=== PATIENT | female | born 1950 | race Caucasian/White ===

== ENCOUNTER → 2019-11-10 11:46 | Outpatient (BNVA) | payer MEDICARE, OTHER, SELFPAY | PROVIDERS: Family Provider Family Medicine; PCP Family Medicine; Visit Provider Internal Medicine Cardiovascular Disease | DX: I25.10 Atherosclerotic heart disease of native coronary artery without angina pectoris (principal); R07.9 Chest pain, unspecified; E78.5 Hyperlipidemia, unspecified; E78.2 Mixed hyperlipidemia; I10 Essential (primary) hypertension; F17.200 Nicotine dependence, unspecified, uncomplicated | CPT/HCPCS: 80053; 80061 ==

== ENCOUNTER 2020-03-13 08:39 | Outpatient (CLI) | payer MEDICARE, OTHER, SELFPAY ==
--- NOTE | 2020-03-13 09:34 | PFTS_ITS ---
Date of Study:03/13/20 Date of Dictation: MECHANICS: Forced vital capacity (FVC) is normal. Forced expiratory volume in one second (FEV1) is normal. FEV1/FVC is normal. FLOW VOLUME LOOP: Normal. LUNG VOLUMES: Not measured DIFFUSING CAPACITY FOR CARBON MONOXIDE: Not measured INTERPRETATION: The spirometry is normal. MTDD
== END 2020-03-13 08:40 | disposition home or self-care (01) ==
LOC: RT 08:45
PROVIDERS: PCP Family Medicine; Visit Provider Internal Medicine Cardiovascular Disease
DX: J44.9 Chronic obstructive pulmonary disease, unspecified (principal)
CPT/HCPCS: 94060; J7611

== ENCOUNTER 2020-04-19 10:22 | Outpatient (CLI) | payer MEDICARE, OTHER, SELFPAY ==
[2020-04-19 11:11] LABS: Basophils # 0.1 10^3/uL (0.0-0.1); Basophils % 0.6 %; Eosinophils # 0.2 10^3/uL (0.0-0.8); Eosinophils % 2.7 %; Hemoglobin 13.1 g/dL (11.5-15.3); Lymphocytes # 2.2 10^3/uL (0.8-4.8); Mean Corpuscular HGB Conc 31.2 g/dL (30.0-36.0); Mean Corpuscular Hemoglobin 28.7 pg (28.0-34.0); Mean Corpuscular Volume 92.1 fL (81-99); Mean Platelet Volume 9.4 fL (7.4-10.4); Monocytes # 0.8 10^3/uL (0.2-0.9); Monocytes % 9.6 %; Neutrophils # 4.84 10^3/uL (1.8-7.7); Neutrophils % 59.7 %; Nucleated Red Blood Cells % 0 %; Platelet Count 322 10^3/cmm (130-400); Red Blood Count 4.56 10^6/uL (4.1-5.3); Red Cell Distribution Width 14.6 % (12.1-15.1); White Blood Count 8.1 10^3/uL (4.0-10.0)
[2020-04-19 11:27] LABS: INR 0.97 (0.83-1.21); Prothrombin Time (Patient) 13.2 Seconds (12.0-15.1)
[2020-04-19 11:40] LABS: Anion Gap 13.7 (5-19); Blood Urea Nitrogen 12 mg/dL (8-23); Calcium 9.1 mg/dL (8.5-10.5); Carbon Dioxide 28 mmol/L (22-29); Chloride 101 mmol/L (98-107); Glomerular Filtration Rate 98.8 mL/min (90-130); Glucose 101 mg/dL (65-115); Osmolality Calculated 286 mOsm/kg (285-295); Potassium 4.7 mmol/L (3.5-5.1); Sodium 138 mmol/L (136-145)
== END 2020-04-19 10:23 | disposition home or self-care (01) ==
PROVIDERS: PCP Family Medicine; Visit Provider Internal Medicine Cardiovascular Disease
DX: I25.10 Atherosclerotic heart disease of native coronary artery without angina pectoris (principal); U07.1 COVID-19
CPT/HCPCS: 36415; 80048; 85025; 87635

== ENCOUNTER 2020-04-25 07:17 | Day surgery (SDC) | payer MEDICARE, OTHER, SELFPAY ==
[2020-04-24 13:32] VITALS: BMI 26.2
[2020-04-25] VITALS (19 sets, daily range): BP systolic 95–148; BP diastolic 52–80; PULSE 58–82; RESP 13–23; TEMP 36.6; O2SAT 90–98
--- NOTE | 2020-04-25 | CTR_ITS ---
[facility] Final Radiology Report Call: [phone] Name: RISSA LEMON Age: 70Years F Date: 04/25/2020 SSN: -- : 1950 Study: CT CHEST WO Requesting Physician: Jenae Morris Images: [id number] Provided Clinical History: SOB Procedure Accession CTDI Vol (mGy) DLP (mGy-cm) CT CHEST WO [id number] 701.7 PROCEDURE INFORMATION: Exam: CT Chest Without Contrast Exam date and time: 04/25/2020 1:35 PM Age: 70 years old Clinical indication: Shortness of breath; Prior surgery; Surgery date: 6+ months; Surgery type: Breast; Additional info: SOB TECHNIQUE: Imaging protocol: Computed tomography of the chest without contrast. Radiation optimization: All CT scans at this facility use at least one of these dose optimization techniques: automated exposure control; mA and/or kV adjustment per patient size (includes targeted exams where dose is matched to clinical indication); or iterative reconstruction. COMPARISON: CR Chest 1 view [id number] 03/08/2018 1:00 AM RADIATION DOSE METRICS: Total DLP (mGy-cm): 701.7 FINDINGS: Lungs: Severe emphysematous change, interstitial prominence, and mild airspace disease. Poorly defined 4 mm nodular lesion of ground-glass attenuation in the right upper lobe (series 2: Image 25). No routine follow-up is indicated. (Reference: [place]). Punctate left upper lobe granuloma. Thyroid: Asymmetric enlargement of the left thyroid lobe with a poorly characterized 2.1 cm nodular hypodense lesion. Pleural space: No significant pleural effusion. Heart: Coronary artery calcification. Aorta: Calcification and ectasia of the thoracic aorta. Lymph nodes: Mediastinal lymph nodes including a 1.8 by 1.8 by 1.2 cm precarinal lymph node. Note evaluation of the edi is somewhat limited in the absence of intravenous contrast. Upper abdomen: Status post cholecystectomy. Contrast in the incompletely visualized upper collecting systems. Mildly dilated fluid-filled stomach. Bones/joints: Osteopenia and degenerative change. Discogenic sclerosis, disc bulging, and pedicle screws in the incompletely visualized lumbar spine. IMPRESSION: 1. Severe emphysematous change, interstitial prominence, and mild airspace disease. 2. Additional findings as described above. Thank you for allowing us to participate in the care of your patient. Dictated and Authenticated by: Solo Sheth MD 04/25/2020 2:13 PM Central Time ([place] & [place]) ROSE
[2020-04-25] MEDS: diphenhydrAMINE 50 mg Capsule PO (07:29)
--- NOTE | 2020-04-25 08:30 | XACV_ITS ---
Ht: 170 cm Wt: 76 kg BSA: 1.91 m2 Gender: Female : 1950 Any Known Allergies: Other Exam Priority: Routine Procedure(s): Procedure Description: Diagnostic procedure Procedure Description: Left Heart Catheterization Procedure Description: Left ventriculography Procedure Description: Coronary Angiography Procedure Description: Pressure Wire Diagnostic Cath Status: Elective Diagnostic Findings * LM has 0% stenosis. * LAD has 0% stenosis. * CX has 0% stenosis. * Mid Right Coronary Artery to mRCA: Moderate 60% stenosis, NIKKI: 3 flow. * Coronary angiography shows right dominance. Conclusions 1. There is moderate coronary artery disease with one vessel disease. 2. Hyperdynamic left ventricular systolic function. Ejection fraction of 70%. 3. FFR: After equalizing the distal and proximal pressure of FFR wire proximal to the lesion, mid RCA lesion was crossed with FFR wire. IV adenosine at rate of 140 mcg/min was started. Patient did not compliant of any symptoms, at then end of two minutes FFR was recorded as 0.91, which is not significant . 4. Indication for angiogram: Unexplained shortness of breath. Recommendations * Continue current medical management and risk factor modification. Diagnostic RX Recommendation: medical therapy and/or counseling Ventriculography Ejection Fraction: 70.0 % Pressures Phase:Rest AO : 103 / 59 ( 76 ) @ 4:14:00 AM 133 / 59 ( 95 ) @ 4:35:00 AM 133 / 59 ( 94 ) @ 4:36:00 AM LV : 139 / 2 / @ 4:34:00 AM 139 / 12 / @ 4:35:00 AM 139 / 10 / @ 4:35:00 AM Valves Phase:DefaultPhase AV : 6.0 @ 9:46:40 AM AV Mean Gradient: 7.0 @ 9:46:40 AM Clinical Evaluation EBL: 5mL-10mL Procedural Details Procedure Consent Obtained. Pre-Procedure Time Out. Identified patient by full name and date of as verbalized by the patient/guarantor. Does the consent match the physician's order: Yes. Accurate & Complete Informed Consent: Yes. Inpatient/Outpatient History & Physical on Chart: Yes. If H&P is completed, is and addenduem needed: No; If yes, is the addendum complete: N/A. Visualize and Verify Site with Patient/Guarantor: N/A. Relevant Radiology Images available: N/A. Pre-op teaching completed and patient verbalized understanding. The risks, benefits, and alternatives of sedation and/or procedure were discussed by physician. The patient agrees to continue. Procedure started. [facility] Clinical Fraility Score: 3: Managing Well. Web Ui Software Engineer Indications: New Onset Angina. Chest Pain Symptom Assessment: Atypical Angina. Cardiovascular Instability: No. Correct patient, site and procedure confirmed by cath team. PERRLA. Strong, equal hand inspector integrated circuits bilaterally. Lungs clear x 5 lobes. IV Site on Arrival: 20 gauge in the left anticubital. IV Fluids: 0.9% NaCl at KVO. 0 mL infused prior to rangelands conservation laborer. Pre Procedural Pulses: bilateral dorsalis pedis was 3+. Pre Procedural Pulses: bilateral posterior tibial was 2+. Pre Procedural Pulses: bilateral radial was 3+. Oxygen started at 2liters/min via nasal canula. bilateral groins was prepped with chloroprep then draped in the usual sterile fashion. Baseline sample Acquired. HR: 63 BPM. Physician notified. Physician arrived. Equipment: 6F - Radial. Physician scrubbed in. Immediate Pre-Procedure Time Out. Correct Patient: Yes; Correct Procedure: Yes; Correct Site: Yes; Correct Patient Position: Yes; Correct Supplies: Yes; Dried Flammable Prep: Yes; Blood Products Available: N/A;. Lidocaine 1% infiltrated to the right radial. Arterial access obtained. Cardiac Cath Pack. ACIST Manifold Kit Model BT 2000. Heparinized Saline (2 units/mL), 1000 mL bag. A 5 chinese TIG catheter in over wire. Multiple views taken of left coronary artery. Catheter redirected to the RCA. Multiple views taken of right coronary artery. Catheter removed over the exchange wire. Inventory is CRD 6FR JR 4 GUIDE 100cm. 6 chinese JR 4 guide catheter was inserted over the wire. FFR guidewire was advanced through the guide catheter to lesion in the mid RCA. An FFR value of 0.91 was obtained for a lesion located at Mid RCA. Wire out. Guide catheter out. Fractional flow reserve measurements obtained. A 5 chinese Angled Pig catheter in over wire. EDP Sample taken: LV 139/2,25; HR: 68 BPM; SpO2: 96%. LV gram performed in JONES @ 10 mL/second for a total of 30 mL. EDP Sample taken: LV 139/12,30; HR: 71 BPM; SpO2: 96%. Pullback taken: LV 139/10,29; AO 133/59(95); Mean: 7mmHg, Peak to Peak: 6mmHg, SEP: 21sec/min; HR: 70 BPM; SpO2: 97%. Catheter removed over the exchange wire. Physician scrubbed out. A TR Band was successful obtaining hemostatsis at the Right Radial artery insertion site. TR band placed. Hemostasis obtained. Post Procedure: Pulses reassessed and unchanged. PERRLA. Strong, equal hand inspector integrated circuits bilaterally. No VTE prophylaxis required. Medication's Wasted: Lidocaine 1% = 18 mL. Medication's Wasted: Nitro = 49.8 mg. Medication's Wasted: Heparin = 1000 units. Medication's Wasted: Other = adenosine 68 mg. Total IV fluids: 50 mL. Contrast type used: Visipaque 320 mgI/mL, 500 mL bottle. Post-op diagnosis: non obstructive CAD, patent stent. Complications: none. Estimated blood loss: 5mL-10mL. Procedure completed. Patient transferred by wheelchair to 1st floor. Vital chart was stopped. Access Site Site: Right Radial artery Sheath Size: 6 Fr Hemostasis Method: TR Band Hemostasis Success: Successful Procedure Medications Start: 9:00 AM Stop: 9:00 AM Medication: Versed Amount: 1 mg Route: I.V. Start: 9:00 AM Stop: 9:00 AM Medication: Fentanyl Amount: 50 mcg Route: I.V. Start: 9:07 AM Stop: 9:07 AM Medication: Versed Amount: 1 mg Route: I.V. Start: 9:07 AM Stop: 9:07 AM Medication: Fentanyl Amount: 50 mcg Route: I.V. Start: 9:11 AM Stop: 9:11 AM Medication: Nitrogylcerin Amount: 200 mcg Route: I.A. Start: 9:14 AM Stop: 9:14 AM Medication: Heparin Amount: 5000 units Route: I.V. I, the attending physician, have reviewed and verified all procedure medications. Yes, all medications given per verbal order History/Risk Factors Hypertension: Yes Dyslipidemia: Yes Peripheral Arterial Disease (PAD): No Myocardial Infarction (NV): No Obesity: No Renal Disease: No Tobacco Use: Current/Recent(w/in 1 year) Prior Interventions PCI: No CABG: No Valve Surgery: No Report Signatures Finalized by Moshe Pinedo MD on 05/07/2020 06:13 PM
--- NOTE | 2020-04-25 09:42 | W.PM.OPSUD ---
Surgery/Procedure H&P Update DATE OF PROCEDURE: April 25, 2020 DATE H&P PERFORMED: 04/08/20 H&P UPDATE INFORMATION: I have reviewed H&P completed within last 30 days, I have examined patient prior to procedure and No changes to prior documentation PREOP DIAGNOSIS: Worsening of shortness of breath unexplained in a patient with prior stent despite of maximal medical management PLANNED PROCEDURE: Operation Date: 04/25/20 08:30 Proposed Procedures p Cardiac Catheterization LHC(Left) - Moshe Pinedo MD PATIENT REASSESSED PRIOR TO SEDATION, WITH NO CHANGE NOTED: Yes PHYSICAL EXAM: alert, oriented x 3, clear to auscultation bilaterally and regular rate & rhythm AIRWAY EVAL/ANESTHESIA PLAN: ASA II, Risks, benefits & alternatives of sedation and/or procedure discussed and Patient agrees to continue as planned
--- NOTE | 2020-04-25 10:05 | PC.NURSE ---
patient received from lab aid staff patient alert oriented and in stable condition no distress noted TR band in place no hematoma noted will follow protocol for TR band removal
--- NOTE | 2020-04-25 11:16 | PC.CHAP ---
Pastoral Care Encounter/Spiritual Assessment Type of Contact [] Declined associate art director visit [] Patient/Family/Request visit [] Outpatient visit [] Follow-up visit [] Physician referral [] Code/Alert [x] Routine visit [] Staff referral [] Actively dying [] Patient sleeping [] Family support [] [] Out of room [] Palliative care [] [x] Receiving care in room [] Pre-surgical visit [] Trauma [] Long length of stay [] ICU visit [] Other: Relational/Emotional Strength [x] Patient feels connected with others/family/visitors/staff [] Distress [] Loneliness/isolation [] Abandonment Spirituality of Patient [x] Person of Marylou [] Attends Caodaism of their Marylou [x] Believes in Prayer [] Reads Bible or Taoism materials [] There are Spiritual issues to be addressed Farm Operations Technical Director Interventions [x] Prayer [x] Active listening [x] Non-anxious presence [x] Spiritual/emotional support [] Crisis/trauma care [x] Spiritual counseling [] Bereavement support [] Provided bereavement packet [] Provided Bible/devotional materials [] Provided toy/stuffed animal, coloring book to patient or family member [] Provided Communion [] Anointing/Thompson [] Salvation [x] Completed spiritual assessment [] Other: Impact on Illness or Injury [] Angry [] Fearful [] Anxious [] Often cries [] Exhaustion [] Unable to work [] Unable to attend cheondoism [] Unable to walk/stand [] Unable to read [] Unable to drive [] Unable to eat/drink [] Unable to sleep [] Unable to be with family [] Patient intubated [] Other: Summary Tests were good she going home, has a good attitude Time spent with patient 10 mins
--- NOTE | 2020-04-25 11:36 | PC.NURSE ---
TR band removal paused at this time due to min bleeding from sight; 6 ML of air previously removed every 10 minutes. Replaced 6ml of air at this time will wait approximately 30 min and begin protocol again patient educated on process and what to expect and s/s of adverse events patient verbalized understanding.
--- NOTE | 2020-04-25 14:18 | PC.NURSE ---
4860 patient TR band removed per protocol no hematoma or bleeding noted patient tolerated well
--- NOTE | 2020-04-25 14:19 | PC.NURSE ---
1410 patient discharged home self care discharge instructions as well as post angio home care instructions provided and explained to patient. patient verbalized understanding of all instructions given. IV discontinued; cath intact min bleeding noted dressing applied patient tolerated well. patient assisted to wheel chair and accompanied to POV with all belongings and discharge instructions in hand. patient alert oriented and in stable condition POV driven by spouse.
== END 2020-04-25 14:10 | disposition home or self-care (01) ==
LOC: CCL 07:17 → CSU 07:22
PROVIDERS: PCP Family Medicine; Visit Provider Internal Medicine Cardiovascular Disease
DX: I25.10 Atherosclerotic heart disease of native coronary artery without angina pectoris (principal); I10 Essential (primary) hypertension; I69.892 Facial weakness following other cerebrovascular disease; F17.210 Nicotine dependence, cigarettes, uncomplicated; M81.0 Age-related osteoporosis without current pathological fracture; M19.90 Unspecified osteoarthritis, unspecified site; E78.2 Mixed hyperlipidemia; Z79.82 Long term (current) use of aspirin
CPT/HCPCS: 12345; 36415; 71250; 93452; 93571; C1769; C1887; C1894; J0153; J1644; J2250; J3010; J3490; J7030; Q0163; Q9967

== ENCOUNTER → 2020-05-02 11:17 | Outpatient (BNVA) | payer MEDICARE, OTHER, SELFPAY | PROVIDERS: PCP Family Medicine; Visit Provider Nurse Practitioner Family | DX: I25.10 Atherosclerotic heart disease of native coronary artery without angina pectoris (principal) | CPT/HCPCS: 80048 ==

== ENCOUNTER → 2020-05-27 09:48 | Outpatient (BNVA) | payer MEDICARE, OTHER, SELFPAY | PROVIDERS: PCP Family Medicine; Visit Provider Internal Medicine Cardiovascular Disease | DX: E78.5 Hyperlipidemia, unspecified (principal); I25.10 Atherosclerotic heart disease of native coronary artery without angina pectoris; R07.9 Chest pain, unspecified; I10 Essential (primary) hypertension; E78.2 Mixed hyperlipidemia; F17.200 Nicotine dependence, unspecified, uncomplicated; R59.0 Localized enlarged lymph nodes; E07.89 Other specified disorders of thyroid; R91.1 Solitary pulmonary nodule | CPT/HCPCS: 84439; 84443; 84481 ==

== ENCOUNTER 2020-05-29 16:02 | Outpatient (CLI) | payer MEDICARE, OTHER, SELFPAY ==
[2020-05-29 17:12] LABS: Free T4 Free Thyroxine 0.69 ng/dL (0.82-1.77); Thyroid Stimulating Hormone 3.22 uIU/mL (0.27-4.20)
== END 2020-05-29 16:03 | disposition home or self-care (01) ==
PROVIDERS: PCP Family Medicine; Visit Provider Internal Medicine
DX: E03.9 Hypothyroidism, unspecified (principal); E04.1 Nontoxic single thyroid nodule; E23.7 Disorder of pituitary gland, unspecified; R59.0 Localized enlarged lymph nodes; R94.6 Abnormal results of thyroid function studies
CPT/HCPCS: 36415; 84439; 84443; 99204

== ENCOUNTER 2020-06-05 13:41 | Outpatient (CLI) | payer MEDICARE, OTHER, SELFPAY ==
--- NOTE | 2020-06-05 14:15 | US_ITS ---
WS: [id number] THYROID ULTRASOUND REASON FOR EXAM: hypodense lesion on left thyroid gland TECHNIQUE: Grayscale and Doppler ultrasound examination of the thyroid gland. FINDINGS: RIGHT: Right thyroid gland measures 3.5 cm x 1.0 cm x 1.2 cm. Right thyroid volume equals 2.3 ccm3. Multiple thyroid nodules of varying character and size. LEFT: Left thyroid gland measures 6.0 cm x 2.3 cm x 2.6 cm. Left thyroid volume equals 18.3 ccm3. Measurements and volume of the left lobe of the thyroid include a large solid mass. Multiple other v arying sized and varying character nodules. Normal thyroid isthmus. There are multiple varying sized and varying character nodules in the thyroid gland. Most of these ar e benign in appearance however, in the left lobe of the thyroid there is a large solid mass with sign ificantly increased blood flow compared to normal thyroid gland. US/US thyroid [id number] IMPRESSION: Multinodular goiter. Large solid mass in the left lobe of the thyroid which should be biopsied as cl inically warranted.
== END 2020-06-05 13:42 | disposition home or self-care (01) ==
LOC: RAD 13:44
PROVIDERS: PCP Family Medicine; Visit Provider Internal Medicine Pulmonary Disease
DX: E07.89 Other specified disorders of thyroid (principal); E04.2 Nontoxic multinodular goiter
CPT/HCPCS: 76536

== ENCOUNTER 2020-07-17 08:57 | Outpatient (CLI) | payer MEDICARE, OTHER, SELFPAY ==
--- NOTE | 2020-07-17 10:00 | US_ITS ---
WS: [id number] ULTRASOUND-GUIDED LEFT THYROID NODULE FNA HISTORY: left thyroid nodule needs FNA(2.2 cm) Procedure, risks, and complications were explained to the patient. Consent has been obtained. Fine-needle aspiration of the dominant nodule in the LEFT thyroid. This was negative on recent PET/CT . This nodule is very hypervascular. Patient has been consented with a risk of bleeding and hemorrhage and infection. The skin is cleansed with ChloraPrep and anesthetized with 1% buffered lidocaine. FNA performed with 25 gauge needles. polysomnography technologist is present to fix slides. 3 biopsies are performed. Patient had a moderate amount of bleeding surrounding the LEFT thyroid nodule. Only 3 biopsies were p erformed. Patient was observed for approximately one hour postprocedure. The bleeding did not progres s. The extent of the adjacent thyroid nodule decreased slightly at 45 minutes post procedure. US/US biopsy thyroid [id number] IMPRESSION: FNA of a LEFT thyroid nodule. Final pathology results pending. This was a complicated biopsy as there is a moderate amount of adjacent bleedin g despite using a small needle. Patient is observed for up to 1 hour postproced ure with no additional bleeding. Bleeding decreased slightly. Patient was not s ymptomatic. Patient has been instructed to return if there is any swelling or p roblems with breathing.
== END 2020-07-17 08:58 | disposition home or self-care (01) ==
PROVIDERS: PCP Family Medicine; Visit Provider Internal Medicine
DX: E04.1 Nontoxic single thyroid nodule (principal)
CPT/HCPCS: 10005; 88173; 88305

== ENCOUNTER 2020-07-24 14:49 | Outpatient (CLI) | payer MEDICARE, OTHER, SELFPAY ==
--- NOTE | 2020-07-24 15:11 | XR_ITS ---
WS: [id number] PROCEDURE: XR chest 2V insp/exp [id number] CLINICAL INFORMATION: rule out pneumonia COMPARISON: None. FINDINGS: Heart: Normal cardiac silhouette. Aortic calcification. Lungs: Chronic emphysematous changes. No acute pulmonary infiltrates. No focal pneumonia or pleural f luid. Bones: Postoperative changes lower cervical spine and lumbar spine. Osteopenia. XR/XR chest 2V insp/exp [id number] IMPRESSION: 1. Chronic emphysematous changes. 2. No acute pulmonary infiltrates.
== END 2020-07-24 14:50 | disposition home or self-care (01) ==
PROVIDERS: PCP Family Medicine; Visit Provider Internal Medicine Pulmonary Disease
DX: J18.9 Pneumonia, unspecified organism (principal)
CPT/HCPCS: 71046

== ENCOUNTER → 2020-07-30 09:22 | Outpatient (BNVA) | payer MEDICARE, OTHER, SELFPAY | PROVIDERS: PCP Family Medicine; Visit Provider Internal Medicine | DX: E03.8 Other specified hypothyroidism (principal); E04.1 Nontoxic single thyroid nodule; E23.7 Disorder of pituitary gland, unspecified; R59.0 Localized enlarged lymph nodes | CPT/HCPCS: 99214 ==

== ENCOUNTER 2020-07-31 08:12 | Outpatient (CLI) | payer MEDICARE, OTHER, SELFPAY ==
[2020-07-31 09:18] LABS: Prolactin 5.53 ng/mL (4.8-23.3); Thyroid Stimulating Hormone 3.55 uIU/mL (0.27-4.20)
[2020-07-31 11:33] LABS: Free T4 Free Thyroxine 0.88 ng/dL (0.82-1.77)
[2020-07-31 11:35] LABS: Cortisol Random 9.91 ug/dL (2.47-19.5)
[2020-08-07 05:28] LABS: Adrenocorticotropic Hormone 9 pg/mL (6-50)
== END 2020-07-31 08:13 | disposition home or self-care (01) ==
LOC: LAB 08:22
PROVIDERS: PCP Family Medicine; Visit Provider Internal Medicine
DX: E03.8 Other specified hypothyroidism (principal); E23.7 Disorder of pituitary gland, unspecified
CPT/HCPCS: 36415; 82024; 82533; 84146; 84439; 84443

== ENCOUNTER 2020-08-28 09:10 | Outpatient (CLI) | payer MEDICARE, OTHER, SELFPAY ==
--- NOTE | 2020-08-28 09:30 | CT_ITS ---
WS: [id number] CT NECK TECHNIQUE: Contrast-enhanced CT of the neck with coronal and sagittal reformatted images. CLINICAL INFORMATION: E04.1 THYROID NODULE COMPARISON: Ultrasound 07/17/2020 and 06/05/2020 CT chest April 25, 2020 DLP: 2515.[address] scans at [facility] use at least one of these dose optimization techniques: automat ed exposure control; mA and/or kV adjustment per patient size (includes targeted exams where dose is matched to clinical indication); or iterative reconstruction. FINDINGS: Again seen is the enhancing left thyroid nodule along the left inferior lobe extending into the upper mediastinum. This measures approximately 2.4 x 2.7 cm unchanged since the recent studies. A few smal l nodules in the right thyroid gland measuring 4 to 5 mm. Mild mass effect on the trachea at the thor acic inlet due to the large left thyroid nodule. No significant airway narrowing. Lung apices are wel l aerated. Aortic calcification. Mastoid air cells well aerated. Paranasal sinuses are well aerated. Normal parapharyngeal fat. Normal posterior nasopharynx. Parotid glands and submandibular glands are normal. Normal partially visualiz ed intracanal contents. No cervical lymphadenopathy. Prior postoperative changes anterior interbody c ervical fusion C4-C6. Anterior fusion hardware at C4-5. CT/CT neck w con* [id number] IMPRESSION: 1. No cervical lymphadenopathy. 2. Heterogeneous enhancing left thyroid nodule is unchanged in appearance exte nding into the upper mediastinum. Mild mass effect on the trachea at the thorac ic inlet. No critical airway stenosis. 3. A few subcentimeter right thyroid nodules. 4. Normal salivary glands. 5. Prior postoperative changes anterior cervical fusion C4-C6 with fusion hard garcía C4-5.
[2020-08-28 09:52] LABS: Blood Urea Nitrogen 8 mg/dL (8-23); Glomerular Filtration Rate 98.8 mL/min (90-130)
[2020-08-28] MEDS: iohexol 300 mg/mL 100 mL Btl IV (09:55)
== END 2020-08-28 09:11 | disposition home or self-care (01) ==
LOC: RADWPI 09:13
PROVIDERS: PCP Family Medicine; Visit Provider Otolaryngology
DX: M43.22 Fusion of spine, cervical region (principal); E04.2 Nontoxic multinodular goiter
CPT/HCPCS: 70491; 82565; 84520; 87635; Q9967

== ENCOUNTER 2020-09-04 06:19 | Day surgery (SDC) | payer MEDICARE, OTHER, SELFPAY ==
[2020-09-03 10:26] VITALS: BMI 26.9
[2020-09-04] VITALS (9 sets, daily range): BP systolic 109–141; BP diastolic 49–71; PULSE 68–88; RESP 16–20; TEMP 36.4–36.9; O2SAT 92–98
--- NOTE | 2020-09-04 06:45 | W.PM.OPSUD ---
Surgery/Procedure H&P Update DATE OF PROCEDURE: September 04, 2020 DATE H&P PERFORMED: 08/20/20 H&P UPDATE INFORMATION: I have reviewed H&P completed within last 30 days, I have examined patient prior to procedure and No changes to prior documentation PREOP DIAGNOSIS: Left thyroid mass PRIMARY INDICATION FOR PROCEDURE: Left thyroid mass PLANNED PROCEDURE: Operation Date: 09/04/20 08:00 Proposed Procedures p Hemithyroidectomy(Left) - Dion Medina MD
[2020-09-04] MEDS: sodium chloride 0.9% 1,000 ML 30 ML IV (07:07)
--- NOTE | 2020-09-04 07:17 | ECG_ITS ---
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 Measurements Intervals [place] Rate: 61 P: 63 WI: 150 QRS: 69 QRSD: 117 T: 41 QT: 429 QTc: 432 Interpretive Statements SINUS RHYTHM RIGHT BUNDLE BRANCH BLOCK [120+ ms QRS DURATION, UPRIGHT V1, 40+ ms S IN I/aVL/V4/V5/V6] No previous ECG available for comparison Electronically Signed On 09-04-2020 19:01:15 CORRECTIONAL COOK by Jenae Morris M.D. [email or web address].[x+[id number]
--- NOTE | 2020-09-04 07:17 | ANES.PREANE2 ---
Pre-Anesthetic Assessment Pre-Anesthetic Assessment: Height/Weight: Height 1.7 m Weight 78.018 kg Temp Pulse Resp BP Pulse Ox 98.4 F 68 18 141/71 96 09/04/20 06:47 09/04/20 06:47 09/04/20 06:47 09/04/20 06:47 09/04/20 06:47 Preop Diagnosis: Left thyroid mass Proposed Procedure: Operation Date: 09/04/20 08:00 Proposed Procedures p Hemithyroidectomy(Left) - Dion Medina MD Was Beta John taken within 24 hours: N/A Last intake: Intake Last Liquid Date 09/03/20 Last Liquid Time 22:00 Last Solid Date 09/03/20 Last Solid Time 22:00 Social: Social History: Tobacco and No alcohol Exam: Pre-Anes Outpt Exam: alert, oriented x 3, clear to auscultation bilaterally and regular rate & rhythm Airway: Submandibular: WNL Cervical ROM: WNL MP: 1 Dentition: False Pulmonary: Pulmonary: COPD CV/HEM: CV/HEM: CAD and HTN : : None reported Hepatic: Hepatic: None reported GI: GI: GERD Metabolic: Metabolic: Thyroid Comments: Thyroid mass Musc/skel: Musc/skel: None reported Neuropsych: Neuropsych: None reported Anesthetic Plan: ASA status: 3 Anesthesia: General Meds/Allergies Current Medications: Current Medications Generic Name Dose Route Start Last Admin Trade Name Freq PRN Reason Stop Dose Admin Sodium Chloride 1,000 mls @ 30 ml s/hr 09/04/20 06:45 09/04/20 07:07 Sodium Chloride 0.9% IV 09/05/20 06:44 30 mls/hr .Q24H NATALI Administration PFSH Anesthesia PFSH: Medical History Chronic obstructive pulmonary disease Coronary artery disease Hyperlipidemia Hypertension Smoker Surgical History Hx of hysterectomy Previous back surgery S/P cholecystectomy 2016 S/P left knee arthroscopy Family History Other CAD (coronary artery disease) Cancer Diabetes Social History Smoking and tobacco status: current every day smoker cigarettes Packs smoked per day: 0.5 Years cigarettes smoked: 59 [ Other cigarette details: [id number] ] Quit status (tobacco): has tried quititng Number of times tried to quit tobacco: 6 Second hand smoke exposure: Yes Smoking risk assessment/counseling performed?: Yes Alcohol intake: never Caregiver/support person: No Lives independently: Yes Household members: spouse Housing: House Marital status: Current occupational status: retired Pets and animals: Yes History of recent travel: No Current gender identity: Female Data Anesthesia Cardiac Studies: No Data to Display
--- NOTE | 2020-09-04 09:55 | PM.OP ---
Operative Report Date of procedure: September 04, 2020 Pre-op Diagnosis: Left thyroid mass Post-op diagnosis: same Post-op Findings: Enlarged thyroid with multilobular cystic masses. Procedure Done: Left thyroid lobectomy with isthmusectomy Specimens removed/disposition: Entire left thyroid and isthmus Surgeon: Dion Medina Anesthesia: General Estimated blood loss (mL): 30 Complications: No complications encountered Findings: 5 to 6 cm multilobulated left thyroid gland Condition: stable Disposition: PACU Brief History: 70-year-old female patient has had an enlarging left thyroid mass for several months. This had been evaluated previously with fine-needle aspiration which was inconclusive. It continued to enlarge and caused the feeling of difficulty breathing as well as swallowing. Therefore the patient is being brought to the operating room at this time to undergo left thyroid lobectomy and if necessary, complete thyroidectomy based on frozen section. Procedure: The procedure risks and complications were explained in detail to the patient in the office setting. These risks included bleeding infection numbness scarring swelling bruising need for additional treatment potential hoarseness due to vocal cord weakness or paralysis which could be temporary or permanent as well as calcium metabolism problems requiring calcium supplementation for life. She also could have problems with potential aspiration issues in the future and need for thyroid supplementation. More serious risk such as heart attack stroke or not surviving the surgery were also discussed. With these things understood informed consent was granted. A timeout was accomplished identifying the patient date of planned procedure allergies and with all in agreement the procedure continued. The patient was placed on the operating table in the supine position. Adequate general endotracheal tube anesthesia was obtained. She was given Ancef IV for prophylaxis. Signed the site was noted on the left neck. The patient was prepped and draped in usual fashion. A curvilinear incision was outlined with a marking pen 2 fingerbreadths above the sternal notch and this area was infiltrated with local using a total of 5 mL of 2% Xylocaine with 1-100,000 epinephrine. After several minutes the cut more the Bovie was used to cut through the skin and the planned incision outline. This was carried down to the subcutaneous fat and to the platysma muscle level. The platysma was cut and then dissection was carried down to the strap muscles medially. With the median raphae identified dissection was carried inferiorly and superiorly. Superiorly went up to the cricoid and the thyroid cartilage notch. Inferiorly was taken down to the region of the sternal notch. Then dissection was carried deep to the strap muscles bearing the isthmus of the thyroid and the left thyroid gland. Dissection was carried out in multiple directions including inferiorly to identify the inferior thyroid vein which was clamped cut and ligated with clips and dissection was carried out from the superiormost aspect identifying the superior thyroid artery vein and superior laryngeal nerve. All these larger vessels were clamped cut and either ligated with 2-0 silk suture or with medium or large clips. Then the isthmus was transected after dissecting free at the junction with the right thyroid lobe. Large clips were applied and then the gland was reflected laterally. Then all directions little by little the dissection was carried out identifying the parathyroid glands and preserving them with their vascular supply. The recurrent laryngeal nerve was identified and followed to its insertion as was the superior laryngeal nerve. The gland was removed in its entirety from the left side and forwarded to the pathologist for frozen section diagnosis. While this was pending the area was irrigated and observed for any bleeding. No bleeding was encountered. Pathology returned as cystic with not enough solid tissue to be able to determine exact diagnosis therefore this was deferred to permanent section. The wound defect was checked again for any bleeding. It was completely dry. It was therefore decided not to place a drain. The defect was closed in multiple layers using interrupted 4-0 chromic deep and subcutaneous and skin gerson to close the skin. The neck was cleansed. Neosporin ointment was applied over the gerson and a dressing was applied externally. The patient tolerated the procedure well had estimated blood loss of 30 mL and arrived in recovery in stable condition.
--- NOTE | 2020-09-04 10:09 | P.PCN_ITS ---
PACU note PACU note: VSS, Good respiratory effort, report to BUFFET MANAGER Post-Anesthesia Exam: awake
--- NOTE | 2020-09-04 10:09 | PM.PACU ---
PACU note PACU note: VSS, Good respiratory effort, report to VAT HOUSE LABORER Post-Anesthesia Exam: awake
[2020-09-04] MEDS: TRAMadol 50 mg Tablet PO (12:00)
--- NOTE | 2020-09-04 14:52 | ANE.PACU2 ---
Inpatient post-anesthesia follow up: Airway intact: Yes Vital signs: Temperature 97.8 F Pulse Rate 71 Respiratory Rate 18 Blood Pressure 109/49 Pulse Oximetry 95 Oxygen Delivery Me thod Room Air Oxygen Flow Rate 2 Fraction of Inspir ed Oxygen Hydration adequate: Yes Nausea and vomiting: No Pain level: 1 Mental status: Baseline
== END 2020-09-04 12:11 | disposition home or self-care (01) ==
PROVIDERS: PCP Family Medicine; Visit Provider Otolaryngology
PROC: (CPT 60225; principal; 2020-09-04 08:00)
DX: E04.1 Nontoxic single thyroid nodule (principal); J44.9 Chronic obstructive pulmonary disease, unspecified; I25.10 Atherosclerotic heart disease of native coronary artery without angina pectoris; I10 Essential (primary) hypertension; K21.9 Gastro-esophageal reflux disease without esophagitis; E78.5 Hyperlipidemia, unspecified; F17.210 Nicotine dependence, cigarettes, uncomplicated
CPT/HCPCS: 60225; 88307; 93005; 96365; J0330; J0690; J2370; J2405; J2704; J3010; J3490; J7030

== ENCOUNTER → 2021-03-04 09:06 | Outpatient (BNVA) | payer MEDICARE, OTHER, SELFPAY | PROVIDERS: PCP Family Medicine; Referring Provider Nurse Practitioner Family; Visit Provider Anesthesiology Pain Medicine | DX: G89.29 Other chronic pain (principal); M47.816 Spondylosis without myelopathy or radiculopathy, lumbar region; M54.16 Radiculopathy, lumbar region; M53.3 Sacrococcygeal disorders, not elsewhere classified; M54.2 Cervicalgia; M79.601 Pain in right arm; M79.604 Pain in right leg; F17.210 Nicotine dependence, cigarettes, uncomplicated; Z79.891 Long term (current) use of opiate analgesic | CPT/HCPCS: 99204 ==

== ENCOUNTER → 2021-03-11 12:21 | Outpatient (BNVA) | payer MEDICARE, OTHER, SELFPAY | PROVIDERS: PCP Family Medicine; Visit Provider Anesthesiology Pain Medicine | DX: M54.16 Radiculopathy, lumbar region (principal); M47.816 Spondylosis without myelopathy or radiculopathy, lumbar region; F17.210 Nicotine dependence, cigarettes, uncomplicated; Z79.891 Long term (current) use of opiate analgesic | CPT/HCPCS: 64483; 64484; J1100; J3490 ==

== ENCOUNTER → 2021-03-25 09:15 | Outpatient (BNVA) | payer MEDICARE, OTHER, SELFPAY | PROVIDERS: PCP Family Medicine; Visit Provider Anesthesiology Pain Medicine | DX: M54.16 Radiculopathy, lumbar region (principal); M47.816 Spondylosis without myelopathy or radiculopathy, lumbar region; M53.3 Sacrococcygeal disorders, not elsewhere classified; M79.604 Pain in right leg; F17.210 Nicotine dependence, cigarettes, uncomplicated; Z79.891 Long term (current) use of opiate analgesic | CPT/HCPCS: 99214 ==

== ENCOUNTER → 2021-04-11 08:33 | Outpatient (BNVA) | payer MEDICARE, OTHER, SELFPAY | PROVIDERS: PCP Family Medicine; Visit Provider Internal Medicine | DX: R94.6 Abnormal results of thyroid function studies (principal); E04.1 Nontoxic single thyroid nodule; E03.8 Other specified hypothyroidism; E23.7 Disorder of pituitary gland, unspecified; R59.0 Localized enlarged lymph nodes; Z87.891 Personal history of nicotine dependence | CPT/HCPCS: 36415; 84439; 84443; 99214 ==

== ENCOUNTER 2021-04-11 09:47 | Outpatient (CLI) | payer MEDICARE, OTHER, SELFPAY ==
[2021-04-11 10:59] LABS: Free T4 Free Thyroxine 0.75 ng/dL (0.82-1.77); Thyroid Stimulating Hormone 5.41 uIU/mL (0.27-4.20)
== END 2021-04-11 09:48 | disposition home or self-care (01) ==
PROVIDERS: PCP Family Medicine; Visit Provider Internal Medicine
DX: R94.6 Abnormal results of thyroid function studies (principal)
CPT/HCPCS: 36415; 84439; 84443

== ENCOUNTER → 2021-04-22 09:26 | Outpatient (BNVA) | payer MEDICARE, OTHER, SELFPAY | PROVIDERS: PCP Family Medicine; Visit Provider Anesthesiology Pain Medicine | DX: M47.816 Spondylosis without myelopathy or radiculopathy, lumbar region (principal); M54.16 Radiculopathy, lumbar region; M53.3 Sacrococcygeal disorders, not elsewhere classified; M46.1 Sacroiliitis, not elsewhere classified; M79.604 Pain in right leg; Z79.891 Long term (current) use of opiate analgesic | CPT/HCPCS: 99213 ==

== ENCOUNTER 2021-07-11 13:02 | Outpatient (CLI) | payer MEDICARE, OTHER, SELFPAY ==
[2021-07-11 13:45] LABS: Thyroid Stimulating Hormone 3.63 uIU/mL (0.27-4.20)
[2021-07-11 14:43] LABS: Free T4 Free Thyroxine 0.87 ng/dL (0.82-1.77)
== END 2021-07-11 13:03 | disposition home or self-care (01) ==
LOC: LAB 13:06
PROVIDERS: PCP Family Medicine; Visit Provider Internal Medicine
DX: E04.1 Nontoxic single thyroid nodule (principal); E23.7 Disorder of pituitary gland, unspecified; E78.2 Mixed hyperlipidemia; R94.6 Abnormal results of thyroid function studies
CPT/HCPCS: 36415; 84439; 84443

== ENCOUNTER → 2021-07-22 10:44 | Outpatient (BNVA) | payer MEDICARE, OTHER, SELFPAY | PROVIDERS: PCP Family Medicine; Visit Provider Internal Medicine | DX: E89.0 Postprocedural hypothyroidism (principal); E04.1 Nontoxic single thyroid nodule; R94.6 Abnormal results of thyroid function studies; Z90.09 Acquired absence of other part of head and neck; F17.210 Nicotine dependence, cigarettes, uncomplicated | CPT/HCPCS: 99214 ==

== ENCOUNTER → 2021-10-01 12:24 | Outpatient (BNVA) | payer MEDICARE, OTHER, SELFPAY | PROVIDERS: PCP Family Medicine; Visit Provider Internal Medicine Cardiovascular Disease | DX: I25.10 Atherosclerotic heart disease of native coronary artery without angina pectoris (principal); R07.9 Chest pain, unspecified; I10 Essential (primary) hypertension; E78.2 Mixed hyperlipidemia; E07.89 Other specified disorders of thyroid; R91.1 Solitary pulmonary nodule; F17.210 Nicotine dependence, cigarettes, uncomplicated | CPT/HCPCS: 99213 ==

== ENCOUNTER 2021-10-17 10:01 | Outpatient (CLI) | payer MEDICARE, OTHER, SELFPAY ==
[2021-10-17 11:15] LABS: Thyroid Stimulating Hormone 3.86 uIU/mL (0.27-4.20)
== END 2021-10-17 10:02 | disposition home or self-care (01) ==
LOC: LAB 10:03
PROVIDERS: PCP Family Medicine; Visit Provider Internal Medicine
DX: R94.6 Abnormal results of thyroid function studies (principal); E03.8 Other specified hypothyroidism; E04.1 Nontoxic single thyroid nodule
CPT/HCPCS: 36415; 84439; 84443

== ENCOUNTER → 2021-10-20 13:20 | Outpatient (BNVA) | payer MEDICARE, OTHER, SELFPAY | PROVIDERS: PCP Family Medicine; Visit Provider Internal Medicine | DX: E89.0 Postprocedural hypothyroidism (principal); Z90.09 Acquired absence of other part of head and neck; F17.210 Nicotine dependence, cigarettes, uncomplicated | CPT/HCPCS: 99214 ==

== ENCOUNTER → 2021-11-19 14:23 | Outpatient (BNVA) | payer MEDICARE, OTHER, SELFPAY | PROVIDERS: PCP Family Medicine; Visit Provider Internal Medicine Cardiovascular Disease | DX: R07.9 Chest pain, unspecified (principal); R06.00 Dyspnea, unspecified; I25.10 Atherosclerotic heart disease of native coronary artery without angina pectoris; I10 Essential (primary) hypertension; F17.210 Nicotine dependence, cigarettes, uncomplicated; E78.2 Mixed hyperlipidemia; E89.0 Postprocedural hypothyroidism | CPT/HCPCS: 99214 ==

== ENCOUNTER → 2021-12-01 09:00 | Outpatient (BNVA) | payer MEDICARE, OTHER, SELFPAY | PROVIDERS: PCP Family Medicine; Referring Provider Family Medicine; Visit Provider Surgery | DX: Z12.11 Encounter for screening for malignant neoplasm of colon (principal) | CPT/HCPCS: 99202 ==

== ENCOUNTER 2022-01-09 12:03 | Outpatient (CLI) | payer MEDICARE, OTHER, SELFPAY ==
--- NOTE | 2022-01-09 12:15 | US_ITS ---
WS: [id number] ULTRASOUND THYROID TECHNIQUE: Ultrasound of the thyroid. CLINICAL INFORMATION: Hx of thyroidectomy and knots COMPARISON: None. FINDINGS: History of prior LEFT thyroidectomy. Thyroid: Right and left thyroid lobes are normal in size and echotexture. Complex nodule RIGHT mid th yroid measuring 10 x 7 x 8 mm and complex nodule inferior RIGHT thyroid measuring 10 x 7 x 14 mm. Tiny hypoechoic nodule in the isthmus measuring 3 mm. Right thyroid lobe: 4.1 cm x 1.9 cm x 1.2 cm Isthmus: 0.4 mm. Cervical lymphadenopathy: None. US/US thyroid [id number] IMPRESSION: 1. Prior LEFT thyroidectomy. 2. Complex nodule RIGHT mid thyroid measuring 10 x 7 x 8 mm and complex nodule inferior RIGHT thyroid measuring 10 x 7 x 14 mm. These are unchanged since May
== END 2022-01-09 12:04 | disposition home or self-care (01) ==
LOC: RAD 12:04
PROVIDERS: PCP Family Medicine; Visit Provider Internal Medicine
DX: E89.0 Postprocedural hypothyroidism (principal); Z90.09 Acquired absence of other part of head and neck; E03.8 Other specified hypothyroidism
CPT/HCPCS: 76536

== ENCOUNTER → 2022-02-25 13:18 | Outpatient (BNVA) | payer MEDICARE, OTHER, SELFPAY | PROVIDERS: PCP Family Medicine; Visit Provider Internal Medicine Cardiovascular Disease | DX: R07.9 Chest pain, unspecified (principal); R06.00 Dyspnea, unspecified; I25.10 Atherosclerotic heart disease of native coronary artery without angina pectoris; I10 Essential (primary) hypertension; F17.210 Nicotine dependence, cigarettes, uncomplicated; E78.2 Mixed hyperlipidemia; E89.0 Postprocedural hypothyroidism | CPT/HCPCS: 99214 ==

== ENCOUNTER → 2022-02-26 11:43 | Outpatient (BNVA) | payer MEDICARE, OTHER, SELFPAY | PROVIDERS: PCP Family Medicine; Visit Provider Internal Medicine | DX: E89.0 Postprocedural hypothyroidism; E78.2 Mixed hyperlipidemia; Z90.09 Acquired absence of other part of head and neck; F17.210 Nicotine dependence, cigarettes, uncomplicated | CPT/HCPCS: 84439; 84443; 99214 ==

== ENCOUNTER 2022-04-17 08:46 | Outpatient (CLI) | payer MEDICARE, OTHER, SELFPAY ==
[2022-04-17 08:51] VITALS: BMI 27.3
--- NOTE | 2022-04-17 09:42 | ECG_ITS ---
[facility] Test Date: 2022-04-17 Pat Name: Sonia Franco Department: Room: Gender: Female Mid Teacher: : 1950 Requested By: Jenae Morris Order Number: [id number] Simeon MD: Jenae Morris M.D. Interpretive Statements NAME OF STUDY: LEXISCAN SESTAMIBI STRESS TEST INDICATION: Chest Pain PROCEDURE: At the baseline, the blood pressure was 143/86 mmHg with a heart rate of 58 bpm. The electrocardiogram showed sinus bradycardia, right axis deviation. Right bundle branch block. The Lexiscan was infused over a period of 20 seconds. A total of 0.4 milligrams of Lexiscan was infused. The stress phase was continued for a total of 5 minutes. Heart rate at the end of the stress phase was 67 bpm with a blood pressure of 148/65 mmHg. The EKG at the peak infusion revealed sinus rhythm with no significant ST-T wave changes. The study was terminated due to protocol completion. Sestamibi was injected 20 seconds after the Lexiscan infusion. Blood pressure at the end of the recovery phase was 133/66 mmHg with a heart rate of 68 beats per minute. CONCLUSION: 1. Normal EKG response to LexiScan infusion. 2. No LexiScan induced chest pain or cardiac arrhythmia. 3. Normal blood pressure and heart rate response. 4. Sestamibi/sestamibi perfusion scan pending; see separate report. Electronically Signed On 04-21-2022 13:06:39 CDT by Jenae Morris M.D. [email or web address]
--- NOTE | 2022-04-17 09:43 | NMCV_ITS ---
NM callie perf SPECT r/s* [id number] Sonia Franco Age: 72 Gender: F : 1950 Exam Date: 04/17/2022 10:06 Ordering Phys: Jenae Morris MD ([email or web address]) Technologist: ADA Bellamy Exam Location: [facility] Indications: ATHEROSCLEROTIC HEART DISEASE OF [place]LL[place] CORONARY ARTERY STRESS TEST Please [facility] IMAGE PROTOCOL Rest/Stress 1 Lexiscan Day Radiopharmaceutical Dose (mCi) Administration Site Administered by Rest: Tc-99m 11.0 IV ADA Mccoy Sestamibi Stress:Tc-99m 32.2 IV ADA Mccoy Sestamibi Rest: 17-Apr-2022 60 Discovery 630 Stress: 17-Apr-2022 30 Discovery 630 0.4mg Lexiscan. Supine position only as patient was unable to lay prone. SPECT RESULTS Technical Quality: Excellent Raw Data Analysis: Sub Diaphragmatic attenuation artifact Image Corrections: No attenuation or motion correction applied Summed Stress Score: 1 Summed Rest Score: 4 Summed Difference Score: 0 PERFUSION FINDINGS Small sized perfusion abnormality of mild severity of mid inferolateral, apical inferior and apical kam on rest images with somewhat improved tracer uptake in the lateral wall on supine stress images. FUNCTIONAL RESULTS (calculated via Gated SPECT) Stress Image LV EF (%): 72 Stress EDV (mL):95 TID: 1.02 Stress ESV (mL):27 FUNCTIONAL FINDINGS: The left ventricle is normal in size. Transient Ischemia Dilatation of 1. There is normal left ventricular systolic function. The left ventricular ejection fraction is normal with a value of 72%. There is normal left ventricular wall thickening. Normal end-diastolic end-systolic volumes. IMPRESSIONS 1. Small sized perfusion abnormality of mild severity of mid inferolateral, apical inferior and apical kam. 2. This likely represents sub diaphragmatic attenuation artifact. 3. Overall left ventricular systolic function is normal without regional wall motion abnormalities,LVEF=72%. 4. No significant coronary ischemia based on the study. 5. EKG portion of the study will be reported separately. Jenae Morris MD (Electronically Signed) Final Date: 21 April 2022 15:02 S
[2022-04-17 11:27] VITALS: BP 133/66; PULSE 69
[2022-04-17] MEDS: regadenoson 0.4 Mg/5 ml Syringe IVP (11:28)
== END 2022-04-17 08:47 | disposition home or self-care (01) ==
LOC: CDL 08:50
PROVIDERS: PCP Family Medicine; Visit Provider Internal Medicine Cardiovascular Disease
DX: R07.9 Chest pain, unspecified (principal); I25.10 Atherosclerotic heart disease of native coronary artery without angina pectoris
CPT/HCPCS: 78452; 93017; A9500; J2785

== ENCOUNTER → 2022-04-20 11:36 | Outpatient (BNVA) | payer MEDICARE, OTHER, SELFPAY | PROVIDERS: PCP Family Medicine; Visit Provider Internal Medicine Cardiovascular Disease | DX: R07.9 Chest pain, unspecified (principal); F17.210 Nicotine dependence, cigarettes, uncomplicated; R06.00 Dyspnea, unspecified; I25.10 Atherosclerotic heart disease of native coronary artery without angina pectoris; J44.9 Chronic obstructive pulmonary disease, unspecified; E78.2 Mixed hyperlipidemia; I10 Essential (primary) hypertension | CPT/HCPCS: 99214 ==

== ENCOUNTER 2022-05-01 05:33 | Outpatient (CLI) | payer MEDICARE, OTHER, SELFPAY ==
[2022-05-01] VITALS (16 sets, daily range): BP systolic 99–127; BP diastolic 56–70; PULSE 57–62; RESP 12–22; TEMP 36.6; O2SAT 93–96; BMI 28.3
--- NOTE | 2022-05-01 06:00 | XACV_ITS ---
Exam Room: 2 Ht: 170 cm Wt: 82 kg BSA: 1.99 m2 Gender: Female : 1950 Any Known Allergies: Other Exam Priority: Routine Procedure(s): Procedure Description: Diagnostic procedure Procedure Description: Left Heart Catheterization Procedure Description: Left ventriculography Procedure Description: Coronary Angiography Diagnostic Cath Status: Elective Diagnostic Findings * Previously known nonobstructive coronary artery disease. Recurrent chest pain with mildly abnormal stress testing. Angiography reveals right coronary artery dominance. * There is minimal plaquing in the ostium of the left main coronary artery. Otherwise the left main is normal. The LAD and circumflex are normal. The right coronary artery is a large dominant vessel which ends as the posterior descending artery into posterior left ventricular branches. All vessels are heavily calcified. In the midportion of the right coronary artery there is a 40 to 50% eccentric stenosis. Conclusions 1. Nonobstructive coronary artery disease with calcified 40% plaque mid right coronary artery. Normal left ventricular size and function. Interventional RX Recommendation: medical therapy and/or counseling Diagnostic RX Recommendation: medical therapy and/or counseling Anticoagulation: Heparin Ventriculography Ejection Fraction: 65.0 % Pressures Phase:Rest AO : 73 / 51 ( 63 ) @ 7:47:00 AM 110 / 50 ( 72 ) @ 7:58:00 AM 107 / 44 ( 71 ) @ 7:58:00 AM LV : 106 / -7 / 16 @ 7:56:00 AM 107 / -6 / 16 @ 7:58:00 AM 107 / -5 / 15 @ 7:58:00 AM Valves Phase:DefaultPhase AV : 0.0 @ 8:05:42 AM AV Mean Gradient: 0.0 @ 8:05:42 AM Clinical Evaluation EBL: 5mL-10mL Procedural Details Procedure Consent Obtained. Admit Source: Out Patient. Pre-Procedure Time Out. Identified patient by full name and date of as verbalized by the patient/guarantor. Does the consent match the physician's order: Yes. Accurate & Complete Informed Consent: Yes. Inpatient/Outpatient History & Physical on Chart: Yes. If H&P is completed, is and addenduem needed: N/A; If yes, is the addendum complete: N/A. Visualize and Verify Site with Patient/Guarantor: N/A. Relevant Radiology Images available: N/A. Pre-op teaching completed and patient verbalized understanding. The risks, benefits, and alternatives of sedation and/or procedure were discussed by physician. The patient agrees to continue. Procedure started. [facility] Clinical Fraility Score: 3: Managing Well. Delicatessen Department Manager Indications: Worsening Angina. Chest Pain Symptom Assessment: Typical Angina Symptoms. Correct patient, site and procedure confirmed by cath team. Current diagnosis: Chest Pain. PERRLA. Strong, equal hand load manager bilaterally. Lungs clear x 5 lobes. IV Site on Arrival: 20 gauge in the right anticubital. IV Fluids: 0.9% NaCl at KVO. 0 mL infused prior to metallurgical lab technician. Pre Procedural Pulses: right dorsalis pedis was 3+. Pre Procedural Pulses: bilateral radial was 3+. Oxygen started at 2liters/min via nasal canula. right groin was prepped with chloroprep then draped in the usual sterile fashion. right radial was prepped with chloroprep then draped in the usual sterile fashion. Physician notified. Baseline sample Acquired. HR: 59 BPM. Physician arrived. Physician scrubbed in. Immediate Pre-Procedure Time Out. Correct Patient: Yes; Correct Procedure: Yes; Correct Site: Yes; Correct Patient Position: Yes; Correct Supplies: Yes; Dried Flammable Prep: Yes; Blood Products Available: N/A;. Lidocaine 1% infiltrated to the right radial. Arterial access obtained. A 6 georgian TIG catheter in over exchange wire. Wire out. Multiple views taken of left coronary artery. Catheter redirected to the RCA. Multiple views taken of right coronary artery. Catheter removed over the exchange wire. A 6 georgian Angled Pig catheter in over wire. Wire out. EDP Sample taken: LV 106/-8,16; HR: 57 BPM; SpO2: Off%. LV gram performed in JONES @ 10 mL/second for a total of 30 mL. EDP Sample taken: LV 107/-7,16; HR: 58 BPM; SpO2: Off%. Pullback taken: LV 107/-6,15; AO 110/50(72); Mean: 0mmHg, Peak to Peak: 0mmHg, SEP: 6sec/min; HR: 58 BPM; SpO2: Off%. Catheter out. Physician review of cine films. Physician scrubbed out. Patient's family updated. Post Procedure: Pulses reassessed and unchanged. PERRLA. Strong, equal hand load manager bilaterally. Medication's Wasted: Nitro = 49.8 mg. Medication's Wasted: Heparin = 1000 u. Medication's Wasted: Other = Fentanyl 50 mcg. No VTE prophylaxis required. Total IV fluids: 50 mL. A TR Band was successful obtaining hemostatsis at the Right Radial artery insertion site. Post-op diagnosis: Non Obstructive CAD. Complications: none. Estimated blood loss: 5mL-10mL. Responsiveness - Normal response to verbal stimuli; alert and oriented, PERRLA. Airway - Unaffected, no intervention required; spontaneous ventilation. Circulation: W/N/L, pulses unchanged. Nausea/Vomiting: No. Procedure completed. Patient transferred by wheelchair to CPRU. Vital chart was stopped. Access Site Site: Right Radial artery Sheath Size: 6 Fr Hemostasis Method: TR Band Hemostasis Success: Successful Procedure Medications Start: 7:36 AM Stop: 7:36 AM Medication: Versed Amount: 1 mg Route: I.V. Start: 7:36 AM Stop: 7:36 AM Medication: Fentanyl Amount: 50 mcg Route: I.V. Start: 7:39 AM Stop: 7:39 AM Medication: Versed Amount: 1 mg Route: I.V. Start: 7:43 AM Stop: 7:43 AM Medication: Nitrogylcerin Amount: 200 mcg Route: I.A. Start: 7:44 AM Stop: 7:44 AM Medication: Heparin Amount: 5000 units Route: I.V. I, the attending physician, have reviewed and verified all procedure medications. Yes, all medications given per verbal order History/Risk Factors Hypertension: Yes Dyslipidemia: Yes Peripheral Arterial Disease (PAD): No Myocardial Infarction (CO): No Obesity: No Renal Disease: No Tobacco Use: Current/Recent(w/in 1 year) Prior Interventions PCI: No CABG: No Valve Surgery: No Report Signatures Finalized by Dr. Chris Bhatt MD on 05/01/2022 08:14 AM
[2022-05-01 06:48] LABS: Basophils # 0.1 10^3/uL (0.0-0.1); Basophils % 0.5 %; Eosinophils # 0.3 10^3/uL (0.0-0.8); Eosinophils % 3.1 %; Hematocrit 41.8 % (37.0-47.0); Hemoglobin 13.5 g/dL (11.5-15.3); Lymphocytes # 3.4 10^3/uL (0.8-4.8); Lymphocytes % 35.2 %; Mean Corpuscular HGB Conc 32.3 g/dL (30.0-36.0); Mean Corpuscular Hemoglobin 30.1 pg (28.0-34.0); Mean Corpuscular Volume 93.1 fl (81-99); Mean Platelet Volume 9.6 fL (7.4-10.4); Monocytes % 10.7 %; Neutrophils # 4.82 10^3/uL (1.8-7.7); Neutrophils % 50.2 %; Nucleated Red Blood Cells % 0 %; Platelet Count 323 10^3/cmm (130-400); Red Blood Count 4.49 10^6/uL (4.1-5.3); Red Cell Distribution Width 14.6 % (12.1-15.1); White Blood Count 9.6 10^3/uL (4.0-10.0)
[2022-05-01] MEDS: diphenhydrAMINE 50 mg Capsule PO (06:53)
[2022-05-01 06:58] LABS: Anion Gap 13.8 (5-19); Blood Urea Nitrogen 14 mg/dL (8-23); Calcium 8.7 mg/dL (8.5-10.5); Carbon Dioxide 23 mmol/L (22-29); Chloride 105 mmol/L (98-107); Glucose 101 mg/dL (65-115); Osmolality Calculated 287 mOsm/kg (285-295); Potassium 3.8 mmol/L (3.5-5.1); Sodium 138 mmol/L (136-145)
--- NOTE | 2022-05-01 08:06 | W.PM.OPSUD ---
Surgery/Procedure H&P Update DATE OF PROCEDURE: May 01, 2022 DATE H&P PERFORMED: 04/20/22 CHANGES TO PREVIOUS DOCUMENTATION: None PREOP DIAGNOSIS: chest pain PRIMARY INDICATION FOR PROCEDURE: chest pain abnormal stress test PLANNED PROCEDURE: Operation Date: 05/01/22 07:00 Proposed Procedures p [facility] w/wo [id number],R07.9(Left) - Chris Bhatt MD
--- NOTE | 2022-05-01 08:58 | P.DS_ITS ---
Discharge Providers Date of Admission: May 01, 2022 Date of Discharge: May 01, 2022 Attending Provider at Admission: barbara Attending Provider at Discharge: Chris Bhatt MD Primary Care Provider: Inderjit Etienne Diagnoses at Discharge Discharge Diagnosis (1) Chest pain: Status: Acute (2) Cigarette smoker: Status: Acute (3) COPD (chronic obstructive pulmonary disease): Status: Acute (4) Hyperlipidemia: Status: Acute Qualifiers: Hyperlipidemia type: mixed hyperlipidemia Qualified Code(s): E78.2 - Mixed hyperlipidemia (5) Coronary artery disease: Status: Acute Qualifiers: Coronary Disease-Associated Artery/Lesion type: king salmon artery Lummi vs. transplanted heart: king salmon heart Associated angina: angina presence unspecified Qualified Code(s): I25.10 - Atherosclerotic heart disease of king salmon coronary artery without angina pectoris Reason for Visit Reason for Visit: R09.7 Brief History: Sonia has known nonobstructive coronary artery disease without prior intervention. She came to see me in the office the other day after having had a stress test which was mildly abnormal. She was having chest pain and wanted to proceed with coronary angiography. Hospital Course Hospital Course Angiography revealed very minimal plaque in the left main coronary artery ostium. Otherwise the left main, LAD and circumflex are normal. The right coronary artery has a calcified 40% mid stenosis but no other lesions. Normal left ventricular size and function. Procedure done from the right radial artery without complication. Physical Exam Narrative: GENERAL: In general she is comfortable HEENT: Exam within normal limits. NECK: Supple without jugular vein distention. The carotid upstroke is normal without bruits. BACK: Exam normal. LUNGS: Clear. HEART: Regular rate and rhythm. ABDOMEN: Benign without organomegaly or tenderness. EXTREMITIES: No edema. The right radial artery area is flat, dry without bleeding, hematoma or other vascular anomaly at the time of discharge. NEUROLOGIC: Exam normal. SKIN: Unremarkable. Discharge Data Studies Completed and Pending Completed Studies During Hospitalization Category Date Time Status MANAGER METROLOGY request for service Routine Exams 05/01/22 06:00 Completed Laboratory Results WBC 9.6 10^3/uL (4.0-10.0) 05/01/22 06:30 RBC 4.49 10^6/uL (4.1-5.3) 05/01/22 06:30 Hgb 13.5 g/dL (11.5-15.3) 05/01/22 06:30 Hct 41.8 % (37.0-47.0) 05/01/22 06:30 MCV 93.1 fl (81-99) 05/01/22 06:30 MCH 30.1 pg (28.0-34.0) 05/01/22 06:30 MCHC 32.3 g/dL (30.0-36.0) 05/01/22 06:30 RDW 14.6 % (12.1-15.1) 05/01/22 06:30 Plt Count 323 10^3/cmm (130-400) 05/01/22 06:30 MPV 9.6 fL (7.4-10.4) 05/01/22 06:30 Neut % (Auto) 50.2 % 05/01/22 06:30 Lymph % (Auto) 35.2 % 05/01/22 06:30 [place] % (Auto) 10.7 % 05/01/22 06:30 Eos % (Auto) 3.1 % 05/01/22 06:30 Baso % (Auto) 0.5 % 05/01/22 06:30 Neut # (Auto) 4.82 10^3/uL (1.8-7.7) 05/01/22 06:30 Lymph # (Auto) 3.4 10^3/uL (0.8-4.8) 05/01/22 06:30 [place] # (Auto) 1.0 10^3/uL (0.2-0.9) H 05/01/22 06:30 Eos # (Auto) 0.3 10^3/uL (0.0-0.8) 05/01/22 06:30 Baso # (Auto) 0.1 10^3/uL (0.0-0.1) 05/01/22 06:30 Nucleated RBC % (auto) 0 % 05/01/22 06:30 Nucleated RBCs # 0.0 /100WBC 05/01/22 06:30 Sodium 138 mmol/L (136-145) 05/01/22 06:30 Potassium 3.8 mmol/L (3.5-5.1) 05/01/22 06:30 Chloride 105 mmol/L (98-107) 05/01/22 06:30 Carbon Dioxide 23 mmol/L (22-29) 05/01/22 06:30 Anion Gap 13.8 (5-19) 05/01/22 06:30 BUN 14 mg/dL (8-23) 05/01/22 06:30 Creatinine 0.6 mg/dL (0.5-0.9) 05/01/22 06:30 GFR Calculation Not Reportable 05/01/22 06:30 Glucose 101 mg/dL (65-115) 05/01/22 06:30 Calculated Osmolality 287 mOsm/kg (285-295) 05/01/22 06:30 Calcium 8.7 mg/dL (8.5-10.5) 05/01/22 06:30 Procedures Performed Left heart catheterization, coronary angiography, left ventriculography Vitals Last Vital Signs Temp 97.9 F 05/01/22 06:00 Pulse 60 05/01/22 08:30 Resp 21 H 05/01/22 08:30 BP 113/61 05/01/22 08:30 Pulse Ox 93 05/01/22 08:30 O2 Del Method 05/01/22 06:00 Discharge Plan Discharge Patient Disposition: Home Prescriptions: Continued ropinirole 0.5 mg tablet 0.5 mg PO TID pantoprazole 40 mg tablet,delayed release (DR/EC) 40 mg PO DAILY benzonatate 200 mg capsule 200 mg PO TID PRN (Reason: Cough) Anoro Ellipta 62.5-25 mcg/actuation blister with device 1 inh inhalation DAILY Qty: 60 3RF furosemide 20 mg tablet 20 mg PO DAILY PRN (Reason: edema) Qty: 30 3RF baclofen 10 mg tablet 10 mg PO DAILY dicyclomine 20 mg tablet 20 mg PO TID PRN (Reason: Abdominal Pain) albuterol sulfate [ProAir HFA] 90 mcg/actuation HFA aerosol inhaler 2 puff inhalation Q6H PRN (Reason: Shortness Of Breath) nitroglycerin 0.4 mg tablet, sublingual 0.4 mg sublingual Q5M PRN (Reason: chest pain) Qty: 30 6RF Rx Instructions: do not exceed 3 doses per episode levothyroxine 25 mcg tablet 25 mcg PO DAILY Qty: 90 3RF Rx Instructions: Take one tablet by mouth daily. carvedilol 6.25 mg tablet 6.25 mg PO BID Qty: 180 3RF Rx Instructions: must administer with a meal/food aspirin 81 mg tablet 81 tab PO DAILY tramadol 50 mg tablet 50 mg PO Q6H PRN (Reason: pain) Qty: 30 0RF atorvastatin 10 mg tablet 10 mg PO DAILY Rx Instructions: TAKE 1 TABLET DAILY amlodipine 5 mg tablet 5 mg PO DAILY Rx Instructions: TAKE 1 TABLET DAILY Discontinued isosorbide mononitrate 30 mg tablet extended release 24 hr 30 mg PO BID Qty: 180 3RF Discharge Orders: Discharge Order (Routine); Ordered 05/01/22 Ordered By: Chris Bhatt Referrals: Rosalind Javier FNP [Nurse Practitioner] - 7-10 days (Right radial artery check and chemistry panel) Diet: Usual diet and Cardiac Activity: Limit activity as instructed Activity Restrictions/Additional Instructions: No lifting over 5 pounds with the right upper extremity for 2 days. Discharge Attestations Time Spent in Discharge Care*: greater than 30 min Quality Metrics Clinical Quality Measures [ No reported AMI, CVA or VTE this stay] Coding Level of Care Code Established Pt Acute Chg FW DC note Patient Type Established History Detailed Exam Detailed Medical Decision Making Moderate Complexity Diagnoses Chest pain R07.9 Cigarette smoker F17.210 COPD (chronic obstructive pulmonary disease) J44.9 Hyperlipidemia E78.2 Hyperlipidemia type: mixed hyperlipidemia Coronary artery disease I25.10 Coronary Disease-Associated Artery/Lesion type: king salmon artery Lummi vs. transplanted heart: king salmon heart Associated angina: angina presence unspecified
--- NOTE | 2022-05-01 10:45 | PC.NURSE ---
1035: TR Band removed from right wrist. No drainage or hematoma noted. Cleaned around site with soap and water. Dressed site with band-aid. Vitals WDL, no complaints of pain or discomfort. Will continue to monitor.
--- NOTE | 2022-05-01 11:53 | PC.NURSE ---
1145: Discharge orders received. Patient discharged to home via private vehicle. Dressing over puncture site right wrist clean, dry, et intact. No drainage or hematoma noted. Vitals WDL, no c/o of pain. Discharge instructions reviewed with patient and spouse. Patient verbalized understanding of all teaching, no questions. Follow up appointment made with YUNIOR Naik.
== END 2022-05-01 11:45 | disposition home or self-care (01) ==
PROVIDERS: PCP Family Medicine; Visit Provider Internal Medicine Cardiovascular Disease
DX: I25.10 Atherosclerotic heart disease of native coronary artery without angina pectoris (principal); F17.210 Nicotine dependence, cigarettes, uncomplicated; J44.9 Chronic obstructive pulmonary disease, unspecified; E78.2 Mixed hyperlipidemia; I10 Essential (primary) hypertension; Z79.82 Long term (current) use of aspirin; E78.5 Hyperlipidemia, unspecified
CPT/HCPCS: 36415; 80048; 85025; 93458; 96360; 99152; 99153; C1769; C1887; C1894; J1644; J2250; J3010; Q0163; Q9967

== ENCOUNTER 2022-05-11 10:56 | Outpatient (CLI) | payer MEDICARE, OTHER, SELFPAY ==
--- NOTE | 2022-05-11 11:05 | MM_ITS ---
WS: [id number] BILATERAL SCREENING DIGITAL TOMOSYNTHESIS MAMMOGRAM WITH CAD HISTORY: SCREENING COMPARISON: 10/03/2020, 08/30/2019 Bilateral CC and MLO views with tomosynthesis and synthetic mammography submitted. Computer aided det ection analyzed. Breast composition: There are scattered areas of fibroglandular density. No suspicious masses, microc alcifications or architectural distortion. MM/[place] [id number] IMPRESSION: BI-RADS: 1-Negative FOLLOW UP: 1 Year Follow-up
== END 2022-05-11 10:57 | disposition home or self-care (01) ==
LOC: RAD 10:57
PROVIDERS: PCP Family Medicine; Visit Provider Family Medicine
DX: Z12.31 Encounter for screening mammogram for malignant neoplasm of breast (principal)
CPT/HCPCS: 77063; 77067

== ENCOUNTER → 2023-02-26 10:40 | Outpatient (BNVA) | payer MEDICARE, OTHER, SELFPAY | PROVIDERS: PCP Family Medicine; Visit Provider Internal Medicine | DX: Z90.09 Acquired absence of other part of head and neck; E89.0 Postprocedural hypothyroidism; E78.2 Mixed hyperlipidemia | CPT/HCPCS: 36415; 84439; 84443; 99214 ==

== ENCOUNTER → 2023-07-06 10:26 | Outpatient (BNVA) | payer MEDICARE, OTHER, SELFPAY | PROVIDERS: PCP Family Medicine; Visit Provider Orthopaedic Surgery | DX: M54.16 Radiculopathy, lumbar region (principal); M48.062 Spinal stenosis, lumbar region with neurogenic claudication; Z98.1 Arthrodesis status | CPT/HCPCS: 72100; 99204 ==

== ENCOUNTER 2023-07-23 10:25 | Emergency (ER) | payer MEDICARE, OTHER, SELFPAY ==
[2023-07-23 10:29] VITALS: BP 141/75; PULSE 70; RESP 15; TEMP 36.8; O2SAT 96
--- NOTE | 2023-07-23 10:31 | W.ED.BACK ---
HPI - Back Pain/Injury General: Stated Complaint: Back pain Time Seen by Provider: 07/23/23 10:26 PFSH ED PFSH: Medical History Chronic obstructive pulmonary disease Coronary artery disease Hyperlipidemia Hypertension Smoker Surgical History H/O thyroidectomy History of carpal tunnel surgery BILATERAL Hx of hemorrhoidectomy Hx of hysterectomy Previous back surgery S/P cholecystectomy 2016 S/P left knee arthroscopy Family History Father Hepatic sclerosis Mother Cancer Diabetes Kidney failure Other CAD (coronary artery disease) Social History Smoking and tobacco/nicotine status: current every day tobacco/nicotine user cigarettes Packs smoked per day: 0.5 Years cigarettes smoked: 59 [ Other cigarette details: [id number]] Quit status (tobacco/nicotine): has tried quititng Number of times tried to quit tobacco: 6 Second hand smoke exposure: Yes Alcohol intake: never Substance/Drug Use: never Caregiver/support person: No Lives independently: Yes Household members: spouse Housing: House Marital status: Current occupational status: retired Pets and animals: Yes Do you think of yourself as: Straight/Heterosexual Current gender identity: Female Discharge Plan Discharge Condition: Stable Prescriptions: No Action ropinirole 0.5 mg tablet 0.5 mg PO TID pantoprazole 40 mg tablet,delayed release (DR/EC) 40 mg PO DAILY benzonatate 200 mg capsule 200 mg PO TID PRN (Reason: Cough) Anoro Ellipta 62.5-25 mcg/actuation blister with device 1 inh inhalation DAILY Qty: 60 3RF baclofen 10 mg tablet 10 mg PO DAILY dicyclomine 20 mg tablet 20 mg PO TID PRN (Reason: Abdominal Pain) albuterol sulfate [ProAir HFA] 90 mcg/actuation HFA aerosol inhaler 2 puff inhalation Q6H PRN (Reason: Shortness Of Breath) carvedilol 6.25 mg tablet 6.25 mg PO BID Qty: 180 3RF Rx Instructions: must administer with a meal/food furosemide 20 mg tablet 20 mg PO DAILY PRN (Reason: edema) Qty: 90 1RF amlodipine 5 mg tablet 5 mg PO DAILY Qty: 90 1RF nitroglycerin 0.4 mg tablet, sublingual 0.4 mg sublingual Q5M PRN (Reason: chest pain) Qty: 30 6RF Rx Instructions: do not exceed 3 doses per episode levothyroxine 25 mcg tablet See Rx Instructions .ROUTE .COMPLEX Qty: 90 3RF Dose Instruction: TAKE 1 TABLET DAILY Rx Instructions: TAKE 1 TABLET DAILY aspirin 81 mg tablet 81 tab PO DAILY tramadol 50 mg tablet 50 mg PO Q6H PRN (Reason: pain) Qty: 30 0RF atorvastatin 10 mg tablet 10 mg PO DAILY Rx Instructions: TAKE 1 TABLET DAILY Referrals: Inderjit Etienne [Primary Care Provider] - Coding Level of Care Code ED Retail Coverage Merchandiser Lead for Rosas Pang
--- NOTE | 2023-07-23 10:47 | USCV_ITS ---
Sonia Franco Age: 73 Gender: F : 1950 Exam Date: 07/23/2023 11:08 Ordering Phys: Lila Fortune Technologist: SHAWNA Exam Location: [facility] [place] Indication: LLE PAIN AND SWELLING HISTORY: Lower extremity swelling. Lower extremity pain. PROCEDURES: Venous duplex imaging was performed in only the left lower extremity. The following venous structures were evaluated: common femoral vein, profunda vein, proximal portion of the greater saphenous vein, superficial femoral vein, and the popliteal vein. In addition, the posterior tibial and peroneal trunk were evaluated. Serial compression, augmentation maneuvers, and spectral Doppler flow evaluation were performed. FINDINGS: No evidence of DVT seen in any vessel visualized at this time. Briggs's Cyst seen in Pop Fossa CONCLUSIONS No evidence of left lower extremity DVT. Popliteal cyst measuring 4.0 x 2.1 x 5.2 cm Nabil Narvaez MD (Electronically Signed) Final Date: 23 July 2023 13:03 S
--- NOTE | 2023-07-23 10:48 | ED_ITS ---
HPI - Extremity Problem General: Chief complaint: Back Pain/Injury Stated complaint: Back pain Time Seen by Provider: 07/23/23 10:26 Source: patient Mode of arrival: ambulatory Limitations: no limitations History of Present Illness: Patient is a nice 73-year-old female presents to ED today with a complaint of left leg pain and swelling that she has noticed over the past week or so. Denies any recent injury or trauma. She states most of her pain seems to be around her left knee and left calf. These are the areas that she has also noticed most swelling. No recent surgeries. No prolonged periods of inactivity. Patient has never had a DVT previously. She does have chronic back pain that sometimes radiates into her lower extremities but states her discomfort today is not characteristic of this. She has not noticed any color or temperature changes to the extremity. MD Complaint: extremity pain, extremity swelling and joint pain Pain Consistency: constant Location: left and lower extremity Radiation: none Relieving factors: nothing Exacerbating factors: weight bearing Associated symptoms: Reports no associated symptoms; Deny chest pain, fever(s) or rash Review of Systems Const: Denies: fever(s), chills, body aches, fatigue or malaise Eyes: Denies: change in vision or blurry vision Card: Denies: chest pain, palpitations, irregular heart rhythm, lightheadedness, syncope or dyspnea on exertion Resp: Reports: dyspnea (with due to her COPD-at baseline); Denies: productive cough, pain on inspiration, change in phlegm color, hemoptysis or chest congestion GI: Denies: abdominal pain, nausea, vomiting, heartburn or diarrhea : Denies: flank pain or dysuria Musc: Reports: extremity pain (L LE), extremity swelling (L LE) and joint pain (posterior L knee); Denies: neck pain or back pain Skin/Breast: Denies: rash Neuro: Reports: difficulty walking (secondary to pain in L LE); Denies: headache(s), numbness in extremities, weakness in extremities or sensory changes PFS ED PFSH: Medical History Smoker Hypertension Chronic obstructive pulmonary disease Coronary artery disease Hyperlipidemia Surgical History History of carpal tunnel surgery BILATERAL Hx of hemorrhoidectomy H/O thyroidectomy Hx of hysterectomy Previous back surgery S/P left knee arthroscopy S/P cholecystectomy 2016 Family History Father Hepatic sclerosis Mother Cancer Diabetes Kidney failure Other CAD (coronary artery disease) Social History Smoking and tobacco/nicotine status: current every day tobacco/nicotine user cigarettes Packs smoked per day: 0.5 Years cigarettes smoked: 59 [ Other cigarette details: [id number]] Quit status (tobacco/nicotine): has tried quititng Number of times tried to quit tobacco: 6 Second hand smoke exposure: Yes Alcohol intake: never Substance/Drug Use: never Caregiver/support person: No Lives independently: Yes Household members: spouse Housing: House Marital status: Current occupational status: retired Pets and animals: Yes Do you think of yourself as: Straight/Heterosexual Current gender identity: Female Physical Exam Const: COMMON NORMALS: no acute distress, average body habitus, patient oriented x3, no limitations, healthy appearing, alert and well nourished HENMT: COMMON NORMALS: normocephalic and atraumatic HEAD & SCALP: n ormocephalic and atraumatic Neck/C-Spine: COMMON NORMALS: full ROM, no lymphadenopathy, supple and no meningeal signs Chest: COMMONS NORMALS: normal inspection of the chest Resp: COMMON NORMALS: normal respiratory effort and clear to auscultation bilaterally AUSCULTATION: clear to auscultation bilaterally Cardio: COMMON NORMALS: regular rate and regular rhythm RATE: regular rate RHYTHM: regular rhythm GI: COMMON NORMALS: Normal to inspection, nondistended, normoactive bowel sounds present, Soft to palpation, non-tender, No hepatosplenomegaly present and no masses PALPATION: Yes Soft to palpation and Yes No hepatosplenomegaly present : COMMON NORMALS: Yes no CVA tenderness BLADDER/KIDNEY EXAM: Yes no CVA tenderness Back/Pelvis: COMMON NORMALS: no CVA tenderness, thoracic and lumbar spine normal to inspection, no thoracic nor lumbar tenderness and thoraco-lumbar ROM normal PELVIS: Yes buttocks normal and No sciatic notch tenderness SACROILIAC JOINTS: Yes SI joints normal SACRUM: no tenderness COCCYX: no tenderness Extremity: COMMON NORMALS: full ROM and capillary refill normal NARRATIVE EXTREMITY EXAM: swelling noted throughout L LE starting around knee distally; posterior L knee/popliteal fossa is tender/swollen; no redness/erythema; she does have calf pain with palpation; no swelling to thigh obviously noted; distal pulses, cap refill, and sensation all intact GENERAL: Yes normal exam except as noted Neuro: COMMON NORMALS: patient oriented x3, moves all extremities, no focal motor deficits and no sensory deficits noted SENSORIUM/ORIENTATION: Yes alert MENINGEAL SIGNS: Yes no meningeal signs Skin: COMMON NORMALS: no rashes or lesions noted GENERAL SKIN EXAM: no rashes or lesions noted Course Vital Signs: Vital signs: Vital Signs Temperature 98.2 F 07/23/23 10:29 Pulse Rate 68 07/23/23 11:20 Respiratory Rate 16 07/23/23 11:20 Blood Pressure 141/75 07/23/23 11:20 Pulse Oximetry 93 07/23/23 11:20 Oxygen Delivery Me thod Room Air 07/23/23 11:20 MDM - Extremity (Nontraumatic) Medical Decision Making Patient's ultrasound is negative for a DVT. She does have a 5 cm Briggs's cyst per [employer] instrument repair technician. There does not appear to be any rupture, venous obstruction, nerve entrapment, compartment syndrome, dissection, or any other complication at this time. Patient will be placed in an NICOLE wrap. She will be placed on steroids, anti-inflammatories, and pain medications. Recommend ice and elevation. Will refer to orthopedics for further evaluation/treatment with possible glucocorticoid injection if symptoms do not improve conservatively. Return to ED precautions given. Differential Diagnosis Likely lower extremity edema and deep vein thrombosis of lower extremity Medical Records I reviewed the patient's medical records. XR interpretation done by ED provider, pending radiology final review (prelim report by US tech) Discharge Plan Discharge Patient Disposition: Home Clinical Impression: Synovial cyst of popliteal space [Briggs], left knee Condition: Stable Prescriptions: New hydrocodone-acetaminophen 5-325 mg tablet 1 tab PO Q6H PRN (Reason: pain) Qty: 14 0RF diclofenac sodium 50 mg tablet,delayed release (DR/EC) 50 mg PO Q12H PRN (Reason: pain) Qty: 20 0RF Medrol (Sebastian) 4 mg tablets,dose pack See Rx Instructions .ROUTE .COMPLEX Qty: 21 0RF Rx Instructions: orally per package directions No Action ropinirole 0.5 mg tablet 0.5 mg PO TID pantoprazole 40 mg tablet,delayed release (DR/EC) 40 mg PO DAILY baclofen 10 mg tablet 10 mg PO DAILY albuterol sulfate [ProAir HFA] 90 mcg/actuation HFA aerosol inhaler 2 puff inhalation Q6H PRN (Reason: Shortness Of Breath) carvedilol 6.25 mg tablet 6.25 mg PO BID Qty: 180 3RF Rx Instructions: must administer with a meal/food furosemide 20 mg tablet 20 mg PO DAILY PRN (Reason: edema) Qty: 90 1RF amlodipine 5 mg tablet 5 mg PO DAILY Qty: 90 1RF nitroglycerin 0.4 mg tablet, sublingual 0.4 mg sublingual Q5M PRN (Reason: chest pain) Qty: 30 6RF Rx Instructions: do not exceed 3 doses per episode atorvastatin 10 mg tablet 10 mg PO QPM Aspir-81 81 mg Tablet,Delayed Release (Dr/Ec) 81 mg PO DAILY levothyroxine 25 mcg tablet 25 mcg PO DAILY losartan 50 mg tablet 50 mg PO DAILY bkheezfwql-rgubqwebkszcu-peab 50-325-40 mg tablet 1 tab PO Q6H PRN (Reason: Pain) Discharge Orders: Discharge ED (Routine); Ordered 07/23/23 Ordered By: Lila Fortune Referrals: Inderjit Etienne [Primary Care Provider] - Patient Instructions: Briggs's Cyst, Briggs Cyst (ED), Opioid Safety, Pain Management Activity Restrictions/Additional Instructions: As we discussed in addition to the medications prescribed to you you may also ice and elevate the knee. Case management will help set you up with a follow-up orthopedic appointment for further evaluation/treatment in case symptoms do not improve with conservative therapies. Do not take the Diclofenac prescription along with other amef-dbq-vmhobmh anti-inflammatory such as Motrin/Ibuprofen or Naproxen/Aleve. Coding Level of Care Code ED Stummel Selector for Rosas Pang
[2023-07-23 11:20] VITALS: BP 141/75; PULSE 68; RESP 16; O2SAT 93
--- NOTE | 2023-07-23 11:36 | DCPLANNER ---
Message was sent to ortho on 07/23/23 at 1139 am. Clinic to contact patient.
[2023-07-23 11:38] VITALS: RESP 16
[2023-07-23] MEDS: morphine 4 mg/mL SDV 1 mL IM (11:38)
[2023-07-23] MEDS: dexamethasone 10 mg/mL INJ IM (11:38)
[2023-07-23 11:50] VITALS: BP 141/75; PULSE 68; RESP 16; TEMP 36.8; O2SAT 93
== END 2023-07-23 11:51 | disposition home or self-care (01) ==
PROVIDERS: Emergency Provider Physician Assistant; PCP Family Medicine
DX: M71.22 Synovial cyst of popliteal space [Baker], left knee (principal); Z79.82 Long term (current) use of aspirin; I10 Essential (primary) hypertension; J44.9 Chronic obstructive pulmonary disease, unspecified; I25.10 Atherosclerotic heart disease of native coronary artery without angina pectoris; E78.5 Hyperlipidemia, unspecified; F17.210 Nicotine dependence, cigarettes, uncomplicated; M79.89 Other specified soft tissue disorders
CPT/HCPCS: 93971; 96372; 99284; J1100; J2270

== ENCOUNTER 2023-07-28 09:39 | Outpatient (CLI) | payer MEDICARE, OTHER, SELFPAY ==
--- NOTE | 2023-07-28 10:15 | MR_ITS ---
WS: [id number] MRI LUMBAR SPINE NONCONTRAST TECHNIQUE: Sagittal T1, T2 and STIR imaging. Axial T1 and T2 imaging. CLINICAL INFORMATION: lumbar pain COMPARISON: None. FINDINGS: Mild lumbar curve. Pedicle screw fixation L2-L4 with interbody fusion grafts. Additional RIGHT side s crew fixation L2 and L3. RIGHT sacroiliac screw fixation. L1-L2: Disc osteophyte complex with slight effacement of the ventral thecal sac. Mild facet arthropat hy. Slight narrowing of the LEFT subarticular recess. Spinal canal and foramen are patent. L2-L3: Prior postoperative changes with interbody fusion. Mild facet arthropathy. Spinal canal and fo ramen are patent. L3-L4: Interbody fusion. Spinal canal and foramen are patent. Mild facet arthropathy. L4-L5: No significant disc bulging. Moderate facet arthropathy. Spinal canal and foramen are patent. L5-S1: Disc osteophyte complex eccentric to the RIGHT slightly impinges the far exiting RIGHT L5 nerv e root laterally. LEFT foramen is patent. Moderate facet arthropathy. Visualized pelvic bony structures: Normal. Paravertebral soft tissues: Normal. IMPRESSION: 1. Mild lumbar curve. No acute compression. No high-grade central canal stenosis. 2. Prior postoperative changes L2-L4 with interbody fusion graft described above. 3. Mild disc osteophyte complex L1-2 with disc desiccation and slight effacement of the ventral thec al sac. Slight narrowing of the LEFT subarticular recess. 4. Mild annular bulging L4-5 with moderate facet arthropathy. 5. RIGHT eccentric disc osteophyte complex L5-S1 slightly contacts the far exiting RIGHT L5 nerve ro ot laterally. 6. No other suspicious findings.
== END 2023-07-28 09:40 | disposition home or self-care (01) ==
LOC: RAD 09:39
PROVIDERS: PCP Family Medicine; Visit Provider Orthopaedic Surgery
DX: M51.16 Intervertebral disc disorders with radiculopathy, lumbar region (principal); Z98.1 Arthrodesis status; M25.78 Osteophyte, vertebrae; M47.817 Spondylosis without myelopathy or radiculopathy, lumbosacral region
CPT/HCPCS: 72148

== ENCOUNTER → 2023-08-02 10:13 | Outpatient (BNVA) | payer MEDICARE, OTHER, SELFPAY | PROVIDERS: PCP Family Medicine; Referring Provider Physician Assistant; Visit Provider Nurse Practitioner | DX: M17.12 Unilateral primary osteoarthritis, left knee; M71.22 Synovial cyst of popliteal space [Baker], left knee; Z46.89 Encounter for fitting and adjustment of other specified devices; M25.562 Pain in left knee | CPT/HCPCS: 73560; 73565; 97760; 99204; L1812 ==

== ENCOUNTER 2023-08-02 11:37 | Outpatient (CLI) | payer MEDICARE, OTHER, SELFPAY | END 2023-08-02 11:38 | disposition home or self-care (01) | LOC: SPT 11:37 | PROVIDERS: PCP Family Medicine; Visit Provider Nurse Practitioner | DX: Z46.89 Encounter for fitting and adjustment of other specified devices (principal); M25.562 Pain in left knee; M17.12 Unilateral primary osteoarthritis, left knee | CPT/HCPCS: 97760; 99204; L1812 ==

== ENCOUNTER → 2023-08-10 12:03 | Outpatient (BNVA) | payer MEDICARE, OTHER, SELFPAY | PROVIDERS: PCP Family Medicine; Visit Provider Orthopaedic Surgery | DX: G89.29 Other chronic pain; Z98.1 Arthrodesis status; M54.50 Low back pain, unspecified; Z01.812 Encounter for preprocedural laboratory examination | CPT/HCPCS: 36415; 80053; 81003; 85025; 99214 ==

== ENCOUNTER 2023-08-19 05:31 | Day surgery (SDC) | payer MEDICARE, OTHER, SELFPAY ==
[2023-08-19 06:08] VITALS: BP 131/65; PULSE 74; RESP 16; TEMP 37.1; O2SAT 96; BMI 26.2
[2023-08-19] MEDS: sodium chloride 0.9% 1,000 ML 30 ML IV (06:34)
--- NOTE | 2023-08-19 06:51 | ANES.PREANE2 ---
Pre-Anesthetic Assessment Height/Weight: Height 1.7 m Weight 75.75 kg Temp Pulse Resp BP Pulse Ox O2 Del Method 98.7 F 74 16 131/65 96 Room Air 08/19/23 06:08 08/19/23 06:08 08/19/23 06:08 08/19/23 06:08 08/19/23 06:08 08/19/23 06:08 Preop Diagnosis: Lumbar stenosis with neurogenic claudication Operation Date: 08/19/23 07:00 Proposed Procedures p Posterior Lumbar Interbody Fusion(Not Applicable) - Ethan Sanford DO s Lumbopelvic Fixation(Not Applicable) - Ethan Sanford DO s Sacroiliac Joint Fusion SI Joint Fusion(Bilateral) - Ethan Sanford DO Familial anesthetic complications: None Was Beta John taken within 24 hours: N/A Was Clonidine taken within 24 hours: N/A Last intake: Intake Last Liquid Date 08/18/23 Last Liquid Time 22:00 Last Solid Date 08/18/23 Last Solid Time 18:00 Social Tobacco and No alcohol Exam alert, oriented x 3, clear to auscultation bilaterally and regular rate & rhythm Airway Mallampati: Class II Dentition: false Pulmonary Chronic Obstructive Pulmonary Disease CV/HEM Coronary Artery Disease and Hypertension asset availability leader 2021 Conclusions 1. Nonobstructive coronary artery disease with calcified 40% plaque mid right coronary artery. Normal left ventricular size and function. Interventional RX Recommendation: medical therapy and/or counseling Diagnostic RX Recommendation: medical therapy and/or counseling Stress tesst 2021 CONCLUSION: 1. Normal EKG response to LexiScan infusion. 2. No LexiScan induced chest pain or cardiac arrhythmia. 3. Normal blood pressure and heart rate response. 4. Sestamibi/sestamibi perfusion scan pending; see separate report. Metabolic Hyperlipidemia and Thyroid Disease Neuropsych Cerebrovascular Accident (X2 no residual deficits) Anesthetic Plan ASA status: 3 Anesthesia: General Risk of > 500 ml blood loss (7ml/kg in children): Yes, adequate IV access and fluids planned Medications/Allergies Home Medications Medication Instructions Recorded Confirmed Last Taken Type ropinirole 0.5 mg tablet 0.5 mg PO TID 11/10/19 08/18/23 08/18/23 History pantoprazole 40 mg tablet,delayed 40 mg PO DAILY 04/04/21 08/18/23 08/18/23 History release albuterol sulfate 90 mcg/actuation 2 puff inhalation Q6H PRN 11/19/21 08/18/23 08/18/23 History aerosol inhaler (ProAir HFA) Shortness Of Breath carvedilol 6.25 mg tablet 6.25 mg PO BID #180 tabs 02/05/22 08/19/23 08/19/23 04:00 Rx atorvastatin 10 mg tablet 10 mg PO QPM 04/27/22 08/18/23 08/18/23 History furosemide 20 mg tablet 20 mg PO DAILY PRN edema #90 tabs 07/29/22 08/18/23 08/18/23 Rx amlodipine 5 mg tablet 5 mg PO DAILY #90 tabs 11/04/22 08/19/23 08/19/23 04:00 Rx nitroglycerin 0.4 mg sublingual 0.4 mg sublingual Q5M PRN chest 02/22/23 08/18/23 Unknown Rx tablet pain #30 tabs aspirin 81 mg tablet,delayed 81 mg PO DAILY 07/23/23 08/18/23 08/18/23 History release pjomncrjje-lgdemhptzrbwf-tbvabvqz 1 tab PO Q6H PRN Pain 07/23/23 08/17/23 Unknown History 50 mg-325 mg-40 mg tablet levothyroxine 25 mcg tablet 25 mcg PO DAILY 07/23/23 08/18/23 08/18/23 History losartan 50 mg tablet 50 mg PO DAILY 07/23/23 08/18/23 08/18/23 History Hinged Knee Brace, LEFT #1 ea 08/02/23 08/10/23 Unknown Rx diclofenac sodium 1 % topical gel 4 g topical QID #100 grams 08/02/23 08/18/23 08/18/23 Rx baclofen 10 mg tablet 10 mg PO BID 08/17/23 08/18/23 08/18/23 History benzonatate 100 mg capsule 100 mg PO TID PRN Muscle Spasm 08/17/23 08/18/23 Unknown History dicyclomine 20 mg tablet 20 mg PO TID 08/17/23 08/19/23 08/17/23 History tramadol 50 mg tablet 50 mg PO Q6H PRN Pain, Moderate 08/17/23 08/18/23 08/18/23 History Allergies Allergy/AdvReac Type Severity Reaction Status Date / Time gabapentin Allergy vomitting Verified 08/19/23 06:02 Sulfa (Sulfonamide Allergy ALGY-Anaphy Verified 08/19/23 06:02 Antibiotics) laxis Current Medications Generic Name Dose Route Start Last Admin Trade Name Freq PRN Reason Stop Dose Admin Sodium Chloride 1,000 mls @ 30 mls/hr 08/19/23 06:00 08/19/23 06:34 Sodium Chloride 0.9% IV 08/20/23 05:59 30 mls/hr .Q24H NATALI Administration PFSH Anesthesia Medical History Primary localized osteoarthritis of left knee Left anterior knee pain Smoker Hypertension Chronic obstructive pulmonary disease Coronary artery disease Hyperlipidemia Surgical History History of carpal tunnel surgery BILATERAL Hx of hemorrhoidectomy H/O thyroidectomy Hx of hysterectomy Previous back surgery S/P left knee arthroscopy S/P cholecystectomy 2015 Family History Father Hepatic sclerosis Mother Cancer Diabetes Kidney failure Other CAD (coronary artery disease) Social History Smoking and tobacco/nicotine status: current every day tobacco/nicotine user cigarettes Packs smoked per day: 0.5 Years cigarettes smoked: 59 [ Other cigarette details: [id number]] Quit status (tobacco/nicotine): has tried quititng Number of times tried to quit tobacco: 6 Second hand smoke exposure: Yes Alcohol intake: never Substance/Drug Use: never Caregiver/support person: No Lives independently: Yes Household members: spouse Housing: House Marital status: Current occupational status: retired Pets and animals: Yes Do you think of yourself as: Straight/Heterosexual Current gender identity: Female Data Anesthesia Cardiac Studies: Sestamibi Stress Test (Cardiology) 04/17/22
--- NOTE | 2023-08-19 07:04 | W.PM.OPSUD ---
Surgery/Procedure H&P Update DATE OF PROCEDURE: August 19, 2023 DATE H&P PERFORMED: 08/17/23 H&P UPDATE INFORMATION: I have reviewed H&P completed within last 30 days, I have examined patient prior to procedure and No changes to prior documentation PREOP DIAGNOSIS: Lumbar stenosis with neurogenic claudication PLANNED PROCEDURE: Operation Date: 08/19/23 07:00 Proposed Procedures p Posterior Lumbar Interbody Fusion(Not Applicable) - DO william Eng Lumbopelvic Fixation(Not Applicable) - DO william Eng Sacroiliac Joint Fusion SI Joint Fusion(Bilateral) - Ethan Sanford DO
--- NOTE | 2023-08-19 08:46 | SUR.PHASEI ---
Surgery was cancelled due to patient needs cardiac clearance
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
== END 2023-08-19 09:30 | disposition home or self-care (01) ==
LOC: OR 05:32
PROVIDERS: PCP Family Medicine; Visit Provider Orthopaedic Surgery
PROC: (CPT 22612; principal; 2023-08-19 07:00)
PROC: (CPT 27280; 2023-08-19 07:00)
DX: M48.062 Spinal stenosis, lumbar region with neurogenic claudication (principal); Z53.8 Procedure and treatment not carried out for other reasons
CPT/HCPCS: 36415; 86850; 86900; J2250; J2371; J2704; J3010; J3490; J7030; P9045

== ENCOUNTER → 2023-08-30 10:49 | Outpatient (BNVA) | payer MEDICARE, OTHER, SELFPAY | PROVIDERS: PCP Family Medicine; Visit Provider Nurse Practitioner | DX: M17.12 Unilateral primary osteoarthritis, left knee; M71.22 Synovial cyst of popliteal space [Baker], left knee | CPT/HCPCS: 20610; 99214; J1100; J2795; J3301 ==

== ENCOUNTER → 2023-09-02 10:35 | Outpatient (BNVA) | payer MEDICARE, OTHER, SELFPAY | PROVIDERS: PCP Family Medicine; Visit Provider Internal Medicine Cardiovascular Disease | DX: E78.2 Mixed hyperlipidemia (principal); I25.10 Atherosclerotic heart disease of native coronary artery without angina pectoris; R06.00 Dyspnea, unspecified; F17.210 Nicotine dependence, cigarettes, uncomplicated; I10 Essential (primary) hypertension | CPT/HCPCS: 99213 ==

== ENCOUNTER 2023-09-22 13:15 | Inpatient (IN) | payer MEDICARE, OTHER, SELFPAY ==
[2023-09-22] VITALS (28 sets, daily range): BP systolic 101–152; BP diastolic 54–81; PULSE 58–87; RESP 14–20; TEMP 36.3–36.7; O2SAT 89–98; BMI 25.0
--- NOTE | 2023-09-22 | XR_ITS ---
WS: [id number] Exam: XR lumbar spine 2-3V* [id number] Date/Time of Exam: 09/22/2023 12:00 AM Reason For Exam: JAYME PICS Comparison 07/06/2023. Previously noted posterior lumbar fusion. Has been revised. The fusion now extends from T12-S2 with p edicle screws and posterior rods. Screws bridge the bilateral SI joints. Alignment appears to be sati sfactory. IMPRESSION: 1. Posterior spinal fusion revision which now extends from T12-S1. Alignment appears satisfactory. Se e above discussion.
[2023-09-22] MEDS: sodium chloride 0.9% 1,000 ML 30 ML IV (08:37)
[2023-09-22] MEDS: ceFAZolin 2,000 MG in sodium chloride 0.9% (plus) 50 ML 100 MG IV ×3 (09:50→20:17)
[2023-09-22] MEDS: thrombin 5,000 unit SDV 5000 UNIT XX (10:40)
[2023-09-22] MEDS: vancomycin 1,000 MG SDV 1000 MG XX (10:41)
[2023-09-22] MEDS: lidocaine-epi 1% 20 mL INJ INJECTION (10:42)
[2023-09-22] MEDS: heparin, porcine 1,000 unit/mL INJ 10 mL 10000 UNIT IRRIGATION (10:43)
--- NOTE | 2023-09-22 13:21 | PM.OP ---
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 L1 - S1 posterior instrumentation 2. Lumbopelvic fixation 3. L5 to pelvis posterior spine fusion 4. open Right Sacral iliac fusion 5. open Left sacral iliac fusion 6. use of computer navigation/ stereotactic for spine 7. removal deep hardware from spine 8. use of allograft. 9. Bone marrow aspirate from right iliac crest Patient is brought to the operative suite after undergoing anesthesia placed in the prone position. All his impingement well-padded. Patient was prepped and draped normal sterile fashion. Neuromonitoring was used throughout the entire case. Skin incision was made using previous skin incision. Dissection was down to the L2-4 screws and out the sacral ala bilaterally. The screw caps from L2, L3, L4 were removed bilaterally. Rods were removed bilaterally. Next attension was brought to placing the fiducial in the right iliac crest. This was done by placing 2 pins were later removed at the end of the case. These pins then attached to the fiducial. The C-arm was brought in and spun around the patient and the information from serum was then loaded in the computer for the later used for placing the iliac screws and the sacral screws. Next attension was brought to obtain the bone marrow aspirate from right iliac crest. This was done using the regenerative cell bone marrow aspiration kit. The needle was then started 10 cc of bone marrow aspirate were withdrawn and this was later mixed with the bone graft. Next usual probe was used to place pedicle screws at L5 bilaterally, L4 bilaterally, L3 bilaterally, L2 bilaterally and L1 bilaterally usual probe was used followed by pedicle feeler followed by placement of screws using computer navigation. L3 was skipped on the right side. Next attention was brought to placing the iliac screws. This was done using the gearshift probe the probe was placed through the sacrum crossed the ala across the sacroiliac joint and into the iliac crest. Next a tap was used and then a screw on the right side was a 90 mm 9.5 screw. This process was repeated on the left side and this was an 80 mm screw placed on the left side. Next attension was brought to doing the open sacroiliac fusion. This was done by exposing the SI joint. The gearshift probe linked to computer navigation was used to cross from the sacral ala across the sacroiliac joint and into the iliac crest. Next a wire was placed through this hole. And then the wire was overdrilled. And then the screw was placed under C-arm guidance. This process was done on both the right and the left side screws were found to be in appropriate position bilaterally. Next the S1 pedicle screws were placed this was done by using the gearshift probe followed by the pedicle feeler followed by placing the screw using computer navigation. It is done S1 bilaterally The transverse process and sacral ala were exposed decorticated and the allograft was then packed into this gutter in order to provide for the from L1 to the sacral ala. Next the rods were attached from L1-S1 and then to the iliac screws bilaterally. Screw caps were placed and torqued down. From L1 to the pelvis. Providing the lumbopelvic fixation. Wounds were then irrigated and vancomycin powder and deep drain placed wound was closed in layered fashion with 0 Vicryl 2-0 Vicryl and Monocryl suture. Sterile dressings were applied patient transferred to the PACU in stable condition.
[2023-09-22] MEDS: fentaNYL 50 mcg/mL INJ 2mL IVP ×2 (13:41→13:59)
[2023-09-22] MEDS: HYDROmorphone 1 mg/mL INJ 1 mL 0.5 MG IVP (14:09)
--- NOTE | 2023-09-22 14:25 | ANE.PACU2 ---
Inpatient post-anesthesia follow up: Airway intact: Yes Vital signs: Temperature 97.4 F Pulse Rate 87 Respiratory Rate 16 Blood Pressure 116/67 Pulse Oximetry 92 Oxygen Delivery Me thod Nasal Cannula Oxygen Flow Rate 2 Fraction of Inspir ed Oxygen Hydration adequate: Yes Nausea and vomiting: No Pain level: 1 Mental status: Baseline
[2023-09-22] MEDS: morphine 4 mg/mL SDV 1 mL 2 MG IVP ×5 (15:13→22:35)
[2023-09-22] MEDS: HYDROcodone-acetaminophen 5-325 mg Tablet PO ×3 (15:13→23:23)
[2023-09-22] MEDS: lactated ringers 1,000 ML 90 ML IV (15:19)
[2023-09-22] MEDS: ropinirole 0.25 mg Tablet 0.5 MG PO ×2 (15:43→20:17)
[2023-09-22] MEDS: dicyclomine 20 mg Tablet PO (15:43)
[2023-09-22] MEDS: docusate sodium 100 mg Capsule PO (17:26)
[2023-09-22] MEDS: atorvastatin 40 mg Tablet 20 MG PO (17:26)
[2023-09-22] MEDS: carvedilol 6.25 mg Tablet PO (17:26)
[2023-09-22] MEDS: baclofen 10 mg Tablet PO (17:26)
[2023-09-23] VITALS (7 sets, daily range): BP systolic 114–149; BP diastolic 66–67; PULSE 60–78; RESP 15–20; TEMP 36.6; O2SAT 85–96
[2023-09-23] MEDS: morphine 4 mg/mL SDV 1 mL 2 MG IVP (02:50)
[2023-09-23] MEDS: lactated ringers 1,000 ML 90 ML IV (02:50)
[2023-09-23] MEDS: ceFAZolin 2,000 MG in sodium chloride 0.9% (plus) 50 ML 100 MG IV (05:19)
[2023-09-23] MEDS: docusate sodium 100 mg Capsule PO (08:44)
[2023-09-23] MEDS: levothyroxine 25 mcg Tablet PO (08:44)
[2023-09-23] MEDS: baclofen 10 mg Tablet PO (08:45)
[2023-09-23] MEDS: ropinirole 0.25 mg Tablet 0.5 MG PO (08:45)
[2023-09-23] MEDS: carvedilol 6.25 mg Tablet PO (08:45)
[2023-09-23] MEDS: aspirin 81 mg EC Tablet PO (08:46)
[2023-09-23] MEDS: amlodipine 5 mg Tablet PO (08:46)
[2023-09-23] MEDS: HYDROcodone-acetaminophen 5-325 mg Tablet PO ×2 (08:46→13:04)
--- NOTE | 2023-09-23 09:55 | P.DS_ITS ---
Discharge Providers Date of Admission: 09/22/23 13:15 Date of Discharge: September 23, 2023 Attending Provider at Admission: Ethan Sanford DO Attending Provider at Discharge: Ethan Sanford DO Primary Care Provider: Inderjit Etienne Reason for Visit Reason for Visit: M48.062 Physical Exam Narrative: Patient sitting up in chair doing well at this point about to work with physical therapy. Complaining of pain but is tolerable. Urinary Catheter Management: August: Cath Placed During This Visit: yes, but has since been removed by the nurse Reason for Continuing Indwelling Catheter: Decision to DC Catheter Urinary Catheter Date of Insertion: 09/22/23 Urinary Catheter Time of Insertion: 10:00 Date Urinary Catheter Removed: 09/23/23 Time Urinary Catheter Discontinued: 05:36 Discharge Data Studies Completed and Pending Pending at discharge Category Date Time Status XR lumbar spine 2-3V* 22177 Routine Exams 09/22/23 00:00 Taken Laboratory Results Blood Type B Positive 09/22/23 08:25 Rho(D) Type Rh positive 09/22/23 08:25 Antibody Screen Positive 09/22/23 08:25 Antibody Identification Inconclusive 09/22/23 08:25 Vitals Last Vital Signs Temp 97.8 F 09/23/23 07:51 Pulse 71 09/23/23 09:41 Resp 20 H 09/23/23 09:41 BP 149/67 09/23/23 07:51 Pulse Ox 87 L 09/23/23 09:41 O2 Del Method Room Air 09/23/23 09:41 O2 Flow Rate 2 09/22/23 23:16 Discharge Plan Discharge Patient Disposition: Home Condition: Stable Prescriptions: New hydrocodone-acetaminophen 5-325 mg tablet 1 - 2 tab PO .Q4-6H Qty: 40 0RF Continued ropinirole 0.5 mg tablet 0.5 mg PO TID pantoprazole 40 mg tablet,delayed release (DR/EC) 40 mg PO DAILY baclofen 10 mg tablet 10 mg PO BID tramadol 50 mg tablet 50 mg PO Q6H PRN (Reason: Pain, Moderate) dicyclomine 20 mg tablet 20 mg PO TID PRN (Reason: abdominal cramping) benzonatate 100 mg capsule 100 mg PO TID PRN (Reason: Cough) albuterol sulfate [ProAir HFA] 90 mcg/actuation HFA aerosol inhaler 2 puff inhalation Q6H PRN (Reason: Shortness Of Breath) (DME) Hinged Knee Brace, LEFT See Rx Instructions .Route .MEDSUPPLY Qty: 1 0RF Rx Instructions: As directed carvedilol 6.25 mg tablet 6.25 mg PO BID Qty: 180 3RF Rx Instructions: must administer with a meal/food furosemide 20 mg tablet 20 mg PO DAILY PRN (Reason: edema) Qty: 90 1RF amlodipine 5 mg tablet 5 mg PO DAILY Qty: 90 1RF nitroglycerin 0.4 mg tablet, sublingual 0.4 mg sublingual Q5M PRN (Reason: chest pain) Qty: 30 6RF Rx Instructions: do not exceed 3 doses per episode atorvastatin 10 mg tablet 10 mg PO QPM tizanidine 2 mg tablet 2 mg PO TID PRN (Reason: muscle spasms) meloxicam 15 mg tablet 15 mg PO DAILY aspirin 81 mg Tablet,Delayed Release (Dr/Ec) 81 mg PO DAILY levothyroxine 25 mcg tablet 25 mcg PO QAM losartan 50 mg tablet 50 mg PO DAILY rivolfwxyo-nfxdyfhbgyjix-tzyk 50-325-40 mg tablet 1 tab PO Q6H PRN (Reason: Pain) Discharge Orders: Discharge Order (Routine); Ordered 09/23/23 Ordered By: Ethan Sanford Discharge Diet: Advance as tolerated Discharge Activity: Limit activity as instructed Patient Instructions: Opioid Safety Activity Restrictions/Additional Instructions: Thank you for [facility] for your care! The following is a list of instructions, from your provider, to follow upon your discharge to ensure you have the optimal recovery from your recent injury orsurgery. Follow-up care is a lo part of your treatment and safety. Be sure to make and go to all appointments, and call your doctor if you are having problems. If you do not already have a follow-up appointment made, call Dr. Sanford office in the next 1-3 days to make follow up appointment for 2 weeks at [phone]. It is also a good idea to know your test results and keep a list of the medicines you take. Medications will be prescribed for you at your provider's discretion. These medications are to be used as instructed; if they are taken more often that prescribed they will not be refilled early and in most cases will not be refilled at all. > When a refill is needed,you should contact [facility] 2-3 business days before your prescription runs out. Medications will NOT be refilled by business applications analyst providers after hours! > Many pain medications contain Tylenol (Acetaminophen). Do not consume more than 4,000 mg of Tylenol per day in total with any combination ofmedications. > Pain medications can cause constipation. Please use an over the counter stool softener as directed, while taking pain medications. Consulty our local pharmacist with questions or recommendations on stool softeners. If constipation persists, contact our office or your primary care provider. > While under our care,you are not to receive pain medications or other controlled substances from any other provider unless our office is notified and approves. Any attempts to do so will result in refusal to prescribe any further pain medications and possible dismissal from our practice. ? Your wound and/or dressing should remain clean and dry for 7 days after surgery. On postoperative day 7 we will change the dressing in clinic. It is okay to shower and get the incision wet. Pad dry afterwards. No further dressing should be required from that point on. Do not put any creams or ointments on theincision > It is normal for there to be a small amount of discharge (bloody or blood tinged) present from a surgical wound for the first 1-3days. > The wound should be examined twice a day for signs of infection. Mild redness or bruising is to be expected but indications that an infection maybe starting would include; An increase in redness, swelling, or discharge, a foul odor present around the incision, and/or a fever greater than 101 ?F ? Showering is permitted, however we ask that you do not take a bath, sit in a whirlpool / Jacuzzi, or go swimming for 1 month. For only the first 2 days after surgery, lt wilt be necessary for you to cover your wound/dressing with plastic and tape to keep it dry. ? Walking is essential for the healing process after surgery. We would like you to slowly advance your walking. This should be done on relatively flat clear ground (inside or out) or can be done on a treadmill. Remember this goal does not have to happen all at once, slowly increase your distance and duration. This can be broken into more more than one walk per day as tolerated. Patients who walk as directed after surgery rarely require Physical Therapy. In the unlikely event this issue arises your provider will direct hospital staff to make the appropriate arrangements. ? No lifting over 5 pounds {a gallon of milk) or bending/twisting until further notice. Each of these activities places an unnecessary amount of stress onto the body and can impede the delicate healing process. > Instead of bending at the waist, keep your back straight and bend at the knees. > Instead of twisting your torso, keep your back straight and turn your entire body with your feet. ? You may sleep in any position which makes you comfortable. Many patients find comfort sleeping in a reclining chair. It is not abnormal to have difficulty sleeping for the first several weeks following your surgery. We recommend trying Benadry! or Tylenol PM as directed to help with your sleeping difficulties. Both medications are over the counter and available withoutprescription. ? NO SMOKING!!! Smoking dramatically increases the probability of developing postoperative wound infections. ? Common complaints after lumbar and/or thoracic spine surgery include, but are not limited to: numbness and/or tingling in the legs, pain around the incision and surrounding tissues, muscle spasms, or stiffness of the middle to low back. Contact our office if these symptoms persist or if an acute change occurs. ? No driving for the first 3-5days, and not while taking narcotics until seen at your follow-up appointment and cleared. There are no restrictions for riding on short trips, however if you take a longer trip, arrangements should be made to make regular stops to get out of the vehicle and stretch . ? Swelling is an unfortunate event that will take place with any surgery and is the primary source of your postoperative discomfort. While walking and regular approved activities helps control inflammation, there are additional steps you can take to minimizeswelling. > Place ice over the surgical site and surrounding tissue for twenty minutes, followed by applying a low/medium heat (heating pad) for an additional twenty minutes every 1-2 hours as needed for painrelief. > You may use of over the counter anti-inflammatory medications (Ibuprofen, Motrin, Aleve, Advil, etc) as directed on the package label. These types of medicines wm significantly reduce the amount of discomfort you experience after surgery from swelling. It should be noted that if you have and allergy to any of these medications, or a history of ulcers or kidney disease you should consult you primary care provider prior to starting these medications. Discharge Attestations Time Spent in Discharge Care*: less than 30 min Quality Metrics Clinical Quality Measures [ No reported AMI, CVA or VTE this stay] Coding Level of Care Code Acute Code for Chg Fwmilan
--- NOTE | 2023-09-24 10:01 | W.PM.OPSFHP ---
Same Day Surgery H&P Indication for Procedure/HPI DATE OF PROCEDURE: September 24, 2023 CHIEF COMPLAINT/INDICATIONFOR SURGICAL PROCEDURE: Back pain PREOP DIAGNOSIS: Nonunion lumbar spine PLANNED PROCEDURE: Operation Date: 09/22/23 10:05 Proposed Procedures p Spinal Fusion(Not Applicable) - DO william Eng Posterior Segmental Instrumentation(Not Applicable) - DO william Eng Lumbopelvic Fixation(Not Applicable) - DO william Eng Sacroiliac Joint Fusion/ open(Bilateral) - Ethan Sanford DO Medications/Allergies* Home Medications Medication Instructions Recorded Confirmed Type ropinirole 0.5 mg tablet 0.5 mg PO TID 11/10/19 09/22/23 History pantoprazole 40 mg tablet,delayed 40 mg PO DAILY 04/04/21 09/22/23 History release albuterol sulfate 90 mcg/actuation 2 puff inhalation Q6H PRN 11/19/21 09/22/23 History aerosol inhaler (ProAir HFA) Shortness Of Breath atorvastatin 10 mg tablet 10 mg PO QPM 04/27/22 09/22/23 History aspirin 81 mg tablet,delayed 81 mg PO DAILY 07/23/23 09/21/23 History release hhseouxfjo-jtegrtufczyyb-xabcmtds 1 tab PO Q6H PRN Pain 07/23/23 09/22/23 History 50 mg-325 mg-40 mg tablet levothyroxine 25 mcg tablet 25 mcg PO QAM 07/23/23 09/23/23 History losartan 50 mg tablet 50 mg PO DAILY 07/23/23 09/22/23 History baclofen 10 mg tablet 10 mg PO BID 08/17/23 09/22/23 History benzonatate 100 mg capsule 100 mg PO TID PRN Cough 08/17/23 09/22/23 History dicyclomine 20 mg tablet 20 mg PO TID PRN abdominal cramping 08/17/23 09/22/23 History tramadol 50 mg tablet 50 mg PO Q6H PRN Pain, Moderate 08/17/23 09/22/23 History meloxicam 15 mg tablet 15 mg PO DAILY 09/23/23 09/23/23 History tizanidine 2 mg tablet 2 mg PO TID PRN muscle spasms 09/23/23 09/23/23 History Allergies/Adverse Reactions Allergy/AdvReac Type Severity Reaction Status Date / Time gabapentin Allergy vomitting Verified 09/21/23 09:25 Sulfa (Sulfonamide Allergy ALGY-Anaphy Verified 09/21/23 09:25 Antibiotics) laxis Pertinent History/Comorbid Conditions* Medical History (Updated 08/03/23 @ 14:51 by AP Santizo) Primary localized osteoarthritis of left knee Left anterior knee pain Smoker Hypertension Chronic obstructive pulmonary disease Coronary artery disease Hyperlipidemia Surgical History (Updated 12/01/21 @ 09:28 by Preston Santos DO) History of carpal tunnel surgery BILATERAL Hx of hemorrhoidectomy H/O thyroidectomy Hx of hysterectomy Previous back surgery S/P left knee arthroscopy S/P cholecystectomy 2015 Family History (Updated 04/11/21 @ 08:57 by Chantale Carpenter LPN) Father Mother Diabetes Mother CAD (coronary artery disease) Kidney failure Mother Hepatic sclerosis Father Cancer Mother Social History Smoking and tobacco/nicotine status: current every day tobacco/nicotine user cigarettes Packs smoked per day: 0.5 Years cigarettes smoked: 59 [ Other cigarette details: [id number]] Quit status (tobacco/nicotine): has tried quititng Number of times tried to quit tobacco: 6 Second hand smoke exposure: Yes Alcohol intake: never Substance/Drug Use: never Caregiver/support person: No Lives independently: Yes Household members: spouse Housing: House Marital status: Current occupational status: retired Pets and animals: Yes Do you think of yourself as: Straight/Heterosexual Current gender identity: Female Pertinent Exam Findings alert and oriented x 3 Recommendations Surgery/Procedure today Coding Level of Care Code Acute Code for Chg Fwd
== END 2023-09-23 14:50 | disposition home or self-care (01) | DRG 455 ==
LOC: MEDSURG 16:47
PROVIDERS: Admitting Provider Orthopaedic Surgery; PCP Family Medicine; Visit Provider Orthopaedic Surgery
PROC: 0SG107J Fusion of 2 or more Lumbar Vertebral Joints with Autologous Tissue Substitute, Posterior Approach, Anterior Column, Open Approach (ICD-10-PCS; principal; 2023-09-22 09:55)
PROC: 0SG107J Fusion of 2 or more Lumbar Vertebral Joints with Autologous Tissue Substitute, Posterior Approach, Anterior Column, Open Approach (ICD-10-PCS; 2023-09-22 09:55)
PROC: 0SG107J Fusion of 2 or more Lumbar Vertebral Joints with Autologous Tissue Substitute, Posterior Approach, Anterior Column, Open Approach (ICD-10-PCS; 2023-09-22 09:55)
PROC: 0SG107J Fusion of 2 or more Lumbar Vertebral Joints with Autologous Tissue Substitute, Posterior Approach, Anterior Column, Open Approach (ICD-10-PCS; CPT 27280; 2023-09-22 09:55)
PROC: 0SG107J Fusion of 2 or more Lumbar Vertebral Joints with Autologous Tissue Substitute, Posterior Approach, Anterior Column, Open Approach (ICD-10-PCS; 2023-09-22 09:55)
DX: M96.0 Pseudarthrosis after fusion or arthrodesis (principal); E89.0 Postprocedural hypothyroidism; F17.210 Nicotine dependence, cigarettes, uncomplicated; I10 Essential (primary) hypertension; J44.9 Chronic obstructive pulmonary disease, unspecified; I25.10 Atherosclerotic heart disease of native coronary artery without angina pectoris; E78.5 Hyperlipidemia, unspecified; Z79.82 Long term (current) use of aspirin
CPT/HCPCS: 36415; 51702; 72100; 76000; 86850; 86870; 86900; 94760; 97161; C1713; J0330; J0690; J1100; J1170; J1644; J2270; J2405; J2704; J2710; J3010; J3370; J3490; J7030; J7120; P9045

== ENCOUNTER 2023-09-30 09:28 | Emergency (ER) | payer MEDICARE, OTHER, SELFPAY ==
[2023-09-30 09:32] VITALS: BP 129/62; PULSE 68; RESP 16; TEMP 36.4; O2SAT 100; BMI 25.0
[2023-09-30 09:53] LABS: Basophils % 0.5 %; Eosinophils # 0.2 10^3/uL (0.0-0.8); Eosinophils % 2.2 %; Hematocrit 33.1 % (36-47); Lymphocytes # 2.4 10^3/uL (0.8-4.8); Lymphocytes % 29.7 %; Mean Corpuscular HGB Conc 31.1 g/dL (30-55); Mean Corpuscular Hemoglobin 26.8 pg (27-33); Mean Corpuscular Volume 86.2 fl (85-98); Mean Platelet Volume 8.7 fL (7.4-10.4); Monocytes # 0.6 10^3/uL (0.2-0.9); Monocytes % 7.2 %; Neutrophils # 4.89 10^3/uL (1.8-7.7); Neutrophils % 59.9 %; Nucleated Red Blood Cells % 0 %; Platelet Count 587 10^3/cmm (157-399); Red Blood Count 3.84 10^6/uL (3.85-5.65); Red Cell Distribution Width 16.9 % (12.1-15.1); White Blood Count 8.17 10^3/uL (3.29-11.43)
--- NOTE | 2023-09-30 10:04 | PC.PHAR ---
PT STATES HAD DICLOFENAC SOD. 50MG BUT ONLY 10 DAY SUPPLY JULY 23 AND DICLOFENAC GEL 1% 7 DAY SUPPLY ON 08/02/23. CURRENTLY NOT USING AND NOT ADDED TO MED LIST. 09/30/23
[2023-09-30 10:07] LABS: Alanine Aminotransferase 13 U/L (0-33); Albumin Level 3.5 g/dL (3.5-5.2); Alkaline Phosphatase 130 U/L (35-105); Aspartate Amino Transferase 14 U/L (0-32); Blood Urea Nitrogen 7 mg/dL (8-23); C Reactive Protein 55.4 mg/L (0.0-4.9); Calcium 8.4 mg/dL (8.5-10.5); Carbon Dioxide 29 mmol/L (22-29); Chloride 102 mmol/L (98-107); Creatinine Clr Calc Pharmacy 65.2453; Glucose 135 mg/dL (65-115); Osmolality Calculated 296 mOsm/kg (285-295); Sodium 143 mmol/L (136-145); Total Bilirubin 0.3 mg/dL (0.15-1.2); Total Protein 6.5 g/dL (6.6-8.7)
[2023-09-30 10:09] LABS: Anion Gap 16.4 (5-19); Potassium 4.4 mmol/L (3.5-5.1)
--- NOTE | 2023-09-30 10:09 | ED_ITS ---
HPI - Back Pain/Injury 2 General: Chief Complaint: Back Pain/Injury Stated Complaint: post op back surgery problems Time Seen by Provider: 09/30/23 09:46 Source: patient Mode of arrival: ambulatory History of Present Illness: 73-year-old female presents emergency ro om ambulatory. On 21 September she had an extensive low back procedures this morning she began to notice significant drainage from the wound. She denies any fever sweats chills she not even really having any pain. No real complications since the procedure. She has an appointment later today for follow-up with Dr. Sanford. Associated symptoms: Deny abdominal pain, chills, dysuria, fever(s) or urinary urgency Review of Systems 2 Const: Denies: fever(s) or chills Card: Denies: chest pain Resp: Denies: dyspnea GI: Denies: abdominal pain : Denies: dysuria, urinary frequency or urinary urgency Musc: Denies: neck pain or back pain Skin/Breast: Denies: rash PFSH ED 2 PFSH: Medical History Primary localized osteoarthritis of left knee Left anterior knee pain Smoker Hypertension Chronic obstructive pulmonary disease Coronary artery disease Hyperlipidemia Surgical History History of carpal tunnel surgery BILATERAL Hx of hemorrhoidectomy H/O thyroidectomy Hx of hysterectomy Previous back surgery S/P left knee arthroscopy S/P cholecystectomy 2015 Family History Father Hepatic sclerosis Mother Cancer Diabetes Kidney failure Other CAD (coronary artery disease) Social History Smoking and tobacco/nicotine status: current every day tobacco/nicotine user cigarettes Packs smoked per day: 0.5 Years cigarettes smoked: 59 [ Other cigarette details: [id number]] Quit status (tobacco/nicotine): has tried quititng Number of times tried to quit tobacco: 6 Second hand smoke exposure: Yes Alcohol intake: never Substance/Drug Use: never Caregiver/support person: No Lives independently: Yes Household members: spouse Housing: House Marital status: Current occupational status: retired Pets and animals: Yes Do you think of yourself as: Straight/Heterosexual Current gender identity: Female Physical Exam 2 Const: COMMON NORMALS: no acute distress GENERAL APPEARANCE: cooperative and comfortable ORIENTATION/CONSCIOUSNESS: Yes awake, Yes oriented to person, Yes oriented to place and Yes oriented to time HENMT: COMMON NORMALS: normocephalic, atraumatic and hearing grossly normal bilaterally HEAD & SCALP: normocephalic and atraumatic Resp: COMMON NORMALS: normal respiratory effort, No retractions, No use of accessory muscles and clear to auscultation bilaterally AUSCULTATION: clear to auscultation bilaterally Cardio: COMMON NORMALS: regular rate, regular rhythm and No murmurs present (Cardio) RATE: regular rate RHYTHM: regular rhythm GI: COMMON NORMALS: Soft to palpation and No hepatosplenomegaly present A USCULTATION: Yes normoactive bowel sounds PALPATION: Yes Soft to palpation, No Tenderness to palpation present (GI), No Guarding due to palpation present (GI) and Yes No hepatosplenomegaly present Back/Pelvis: OTHER: Examination of the incision. Wound dressing removed there is a lot of old blood and serous drainage to this was cleaned up no active drainage from the back no wound dehiscence no erythema no tender areas with palpation along the incision unable to express any drainage no induration or wound dehiscence Extremity: COMMON NORMALS: normal to inspection, capillary refill normal, no clubbing, cyanosis or edema, no calf tenderness and no pedal edema Neuro: SENSORIUM/ORIENTATION: Yes oriented to person, Yes oriented to place and Yes oriented to time Skin: COMMON NORMALS: no rashes or lesions noted GENERAL SKIN EXAM: no rashes or lesions noted Course 2 Vital Signs: Vital signs: Vital Signs Temperature 97.6 F 09/30/23 09:32 Pulse Rate 68 09/30/23 09:32 Respiratory Rate 16 09/30/23 09:32 Blood Pressure 129/62 09/30/23 09:32 Pulse Oximetry 100 09/30/23 09:32 Oxygen Delivery Me thod Room Air 09/30/23 09:32 MDM - Back Pain/Injury Medical Decision Making Serous fluid and old blood on the bandage no sign of infection no purulent drainage. On examination of the incision I cannot get any purulent drainage to express from the wound. There is no erythema or induration. No dehiscence of the wound. White count is normal and there is a slight elevation in the CRP but I suspect that is postinflammatory changes from the extensive surgery. I discussed Dr. Sanford he agrees. New bandages placed on the wound. At this point I do not think there is any indication for antibiotics or does not appear to be infection I think she just had a seroma that drained last night. She has an appointment [address] Sanford encouraged her to keep that reviewed the case with Dr. Sanford by phone he concurs with treatment plan he will see the patient in the office as scheduled Medical Records I reviewed the patient's medical records. Labs I reviewed the patient's lab results. 09/30/23 09:42 09/30/23 09:42 Laboratory Results WBC 8.17 10^3/uL (3.29-11.43) 09/30/23 09:42 RBC 3.84 10^6/uL (3.85-5.65) L 09/30/23 09:42 Hgb 10.30 g/dL (11.27-16.99) L 09/30/23 09:42 Hct 33.1 % (36-47) L 09/30/23 09:42 MCV 86.2 fl (85-98) 09/30/23 09:42 MCH 26.8 pg (27-33) L 09/30/23 09:42 MCHC 31.1 g/dL (30-55) 09/30/23 09:42 RDW 16.9 % (12.1-15.1) H 09/30/23 09:42 Plt Count 587 10^3/cmm (157-399) H 09/30/23 09:42 MPV 8.7 fL (7.4-10.4) 09/30/23 09:42 Neut % (Auto) 59.9 % 09/30/23 09:42 Lymph % (Auto) 29.7 % 09/30/23 09:42 [place] % (Auto) 7.2 % 09/30/23 09:42 Eos % (Auto) 2.2 % 09/30/23 09:42 Baso % (Auto) 0.5 % 09/30/23 09:42 Neut # (Auto) 4.89 10^3/uL (1.8-7.7) 09/30/23 09:42 Lymph # (Auto) 2.4 10^3/uL (0.8-4.8) 09/30/23 09:42 [place] # (Auto) 0.6 10^3/uL (0.2-0.9) 09/30/23 09:42 Eos # (Auto) 0.2 10^3/uL (0.0-0.8) 09/30/23 09:42 Baso # (Auto) 0.0 10^3/uL (0.0-0.1) 09/30/23 09:42 Nucleated RBC % (auto) 0 % 09/30/23 09:42 Nucleated RBCs # 0.0 /100WBC 09/30/23 09:42 Sodium 143 mmol/L (136-145) 09/30/23 09:42 Potassium 4.4 mmol/L (3.5-5.1) 09/30/23 09:42 Chloride 102 mmol/L (98-107) 09/30/23 09:42 Carbon Dioxide 29 mmol/L (22-29) 09/30/23 09:42 Anion Gap 16.4 (5-19) 09/30/23 09:42 BUN 7 mg/dL (8-23) L 09/30/23 09:42 Creatinine 0.5 mg/dL (0.5-0.9) 09/30/23 09:42 GFR Calculation Not Reportable 09/30/23 09:42 Glucose 135 mg/dL (65-115) H 09/30/23 09:42 Calculated Osmolality 296 mOsm/kg (285-295) H 09/30/23 09:42 Calcium 8.4 mg/dL (8.5-10.5) L 09/30/23 09:42 Total Bilirubin 0.3 mg/dL (0.15-1.2) 09/30/23 09:42 AST 14 U/L (0-32) 09/30/23 09:42 ALT 13 U/L (0-33) 09/30/23 09:42 Alkaline Phosphatase 130 U/L (35-105) H 09/30/23 09:42 C-Reactive Protein 55.4 mg/L (0.0-4.9) H 09/30/23 09:42 Total Protein 6.5 g/dL (6.6-8.7) L 09/30/23 09:42 Albumin 3.5 g/dL (3.5-5.2) 09/30/23 09:42 Globulin 3.0 g/dL (1.3-4.6) 09/30/23 09:42 No radiology studies performed this visit Discharge Plan Discharge Patient Disposition: Home Clinical Impression: Postoperative seroma, Hx of decompressive lumbar laminectomy Condition: Stable Prescriptions: No Action ropinirole 0.5 mg tablet 0.5 mg PO TID pantoprazole 40 mg tablet,delayed release (DR/EC) 40 mg PO DAILY baclofen 10 mg tablet 10 mg PO BID tramadol 50 mg tablet 50 mg PO Q6H PRN (Reason: Pain, Moderate) dicyclomine 20 mg tablet 20 mg PO TID PRN (Reason: abdominal cramping) albuterol sulfate [ProAir HFA] 90 mcg/actuation HFA aerosol inhaler 2 puff inhalation Q6H PRN (Reason: Shortness Of Breath) (DME) Hinged Knee Brace, LEFT See Rx Instructions .Route .MEDSUPPLY Qty: 1 0RF Rx Instructions: As directed carvedilol 6.25 mg tablet 6.25 mg PO BID Qty: 180 3RF Rx Instructions: must administer with a meal/food furosemide 20 mg tablet 20 mg PO DAILY PRN (Reason: edema) Qty: 90 1RF amlodipine 5 mg tablet 5 mg PO DAILY Qty: 90 1RF nitroglycerin 0.4 mg tablet, sublingual 0.4 mg sublingual Q5M PRN (Reason: chest pain) Qty: 30 6RF Rx Instructions: do not exceed 3 doses per episode atorvastatin 10 mg tablet 10 mg PO QPM tizanidine 2 mg tablet 2 mg PO TID PRN (Reason: muscle spasms) meloxicam 15 mg tablet 15 mg PO DAILY hydrocodone-acetaminophen 5-325 mg tablet 1 - 2 tab PO .Q4-6H PRN (Reason: Pain) aspirin 81 mg Tablet,Delayed Release (Dr/Ec) 81 mg PO DAILY levothyroxine 25 mcg tablet 25 mcg PO QAM losartan 50 mg tablet 50 mg PO DAILY fydeefuwuw-oaonoaatrlaat-iaus 50-325-40 mg tablet 1 tab PO Q6H PRN (Reason: Pain) Discharge Orders: Discharge ED (Routine); Ordered 04/04/24 Ordered By: Duong Hoyos Referrals: Inderjit Etienne [Primary Care Provider] - Patient Instructions: Opioid Safety, Pain Management Activity Restrictions/Additional Instructions: Thank you for choosing [facility] for your healthcare needs today. Please realize this is an emergency room and that we are providing you with a medical screening exam and this may not be complete and all inclusive of all the testing and or work up that you may need to determine your ailment or severity of your illness. It is very important that you follow up as instructed or that you return to the Emergency Department should you have concerns or if your condition changes or worsens in any way. You were seen today for drainage from the wound in your back from the back surgery. It appears based on exam and laboratory findings there is no signs of infection. Suspect this is a postoperative seroma. Reviewed the laboratory findings with Dr. Sanford and he agrees he would like to have you keep your appointment later today for him to evaluate the incision. Coding Level of Care Code ED Director Of Online Merchandising for [employer] Pang
--- NOTE | 2023-09-30 10:28 | PC.NURSE ---
Dr. Hoyos removed the bandage on the patient's surgical incision so that he could see if the incision was actively bleeding. Dr. Hoyos then asked me to get another occlusive antibacterial dressing from surgery and place it back over the patient's incision site. PRO Hernandez from surgery brought me the dressing and I gave her one of the patient's stickers so she could bill for the dressing and I placed the dressing on the mid and lower back of the patient.
== END 2023-09-30 11:04 | disposition home or self-care (01) ==
PROVIDERS: Emergency Provider Family Medicine; PCP Family Medicine
DX: L76.34 Postprocedural seroma of skin and subcutaneous tissue following other procedure (principal); I10 Essential (primary) hypertension; J44.9 Chronic obstructive pulmonary disease, unspecified; I25.10 Atherosclerotic heart disease of native coronary artery without angina pectoris; E78.5 Hyperlipidemia, unspecified; F17.210 Nicotine dependence, cigarettes, uncomplicated
CPT/HCPCS: 80053; 85025; 86140; 99024; 99283

== ENCOUNTER → 2023-10-05 14:46 | Outpatient (BNVA) | payer MEDICARE, OTHER, SELFPAY | PROVIDERS: PCP Family Medicine; Visit Provider Orthopaedic Surgery | DX: Z98.1 Arthrodesis status (principal) | CPT/HCPCS: 99024 ==

== ENCOUNTER → 2023-11-02 10:51 | Outpatient (BNVA) | payer MEDICARE, OTHER, SELFPAY | PROVIDERS: PCP Family Medicine; Visit Provider Orthopaedic Surgery | DX: Z98.1 Arthrodesis status (principal) | CPT/HCPCS: 72100; 99024 ==

== ENCOUNTER → 2023-12-06 10:14 | Outpatient (BNVA) | payer MEDICARE, OTHER, SELFPAY | PROVIDERS: PCP Family Medicine; Visit Provider Specialist | DX: M17.0 Bilateral primary osteoarthritis of knee | CPT/HCPCS: 20610; 73560; 73565; 99213; J1100; J2795; J3301 ==

== ENCOUNTER → 2023-12-14 10:23 | Outpatient (BNVA) | payer MEDICARE, OTHER, SELFPAY | PROVIDERS: PCP Family Medicine; Visit Provider Orthopaedic Surgery | DX: Z98.1 Arthrodesis status (principal) | CPT/HCPCS: 72100; 99024 ==

== ENCOUNTER → 2024-02-15 07:37 | Outpatient (BNVA) | payer MEDICARE, OTHER, SELFPAY | PROVIDERS: PCP Family Medicine; Visit Provider Orthopaedic Surgery | DX: Z98.1 Arthrodesis status (principal); Z47.89 Encounter for other orthopedic aftercare; G89.29 Other chronic pain | CPT/HCPCS: 72100; 99213 ==

== ENCOUNTER 2024-02-22 08:23 | Outpatient (CLI) | payer MEDICARE, OTHER, SELFPAY ==
[2024-02-22 09:18] LABS: Thyroid Stimulating Hormone 4.73 uIU/mL (0.27-4.20)
== END 2024-02-22 08:24 | disposition home or self-care (01) ==
PROVIDERS: PCP Family Medicine; Visit Provider Internal Medicine
DX: R94.6 Abnormal results of thyroid function studies (principal); E03.8 Other specified hypothyroidism
CPT/HCPCS: 36415; 84439; 84443

== ENCOUNTER → 2024-02-29 15:23 | Outpatient (BNVA) | payer MEDICARE, OTHER, SELFPAY | PROVIDERS: PCP Family Medicine; Visit Provider Internal Medicine Cardiovascular Disease | DX: I25.10 Atherosclerotic heart disease of native coronary artery without angina pectoris (principal); F17.200 Nicotine dependence, unspecified, uncomplicated; I10 Essential (primary) hypertension | CPT/HCPCS: 99214 ==

== ENCOUNTER → 2024-03-01 07:48 | Outpatient (BNVA) | payer MEDICARE, OTHER, SELFPAY | PROVIDERS: PCP Family Medicine; Visit Provider Internal Medicine | DX: Z90.09 Acquired absence of other part of head and neck (principal); E89.0 Postprocedural hypothyroidism; E11.9 Type 2 diabetes mellitus without complications; Z79.890 Hormone replacement therapy | CPT/HCPCS: 99214 ==

== ENCOUNTER → 2024-03-10 10:22 | Outpatient (BNVA) | payer MEDICARE, OTHER, SELFPAY | PROVIDERS: PCP Family Medicine; Visit Provider Nurse Practitioner | DX: M17.0 Bilateral primary osteoarthritis of knee (principal) | CPT/HCPCS: 20610; J1100; J2795; J3301 ==

== ENCOUNTER → 2024-05-18 08:15 | Outpatient (BNVA) | payer MEDICARE, OTHER, SELFPAY | PROVIDERS: PCP Family Medicine; Visit Provider Orthopaedic Surgery | DX: M54.9 Dorsalgia, unspecified (principal); Z98.1 Arthrodesis status | CPT/HCPCS: 72100; 99213 ==

== ENCOUNTER 2024-06-15 13:31 | Outpatient (CLI) | payer MEDICARE, OTHER, SELFPAY ==
[2024-06-15 14:19] LABS: Free T4 Free Thyroxine 1.04 ng/dL (0.82-1.77); Thyroid Stimulating Hormone 3.36 uIU/mL (0.27-4.20)
== END 2024-06-15 13:32 | disposition home or self-care (01) ==
LOC: LAB 13:33
PROVIDERS: PCP Family Medicine; Visit Provider Internal Medicine
DX: E11.9 Type 2 diabetes mellitus without complications (principal)
CPT/HCPCS: 36415; 84439; 84443

== ENCOUNTER → 2024-06-30 12:12 | Outpatient (BNVA) | payer MEDICARE, OTHER, SELFPAY | PROVIDERS: PCP Family Medicine; Visit Provider Internal Medicine | DX: E78.2 Mixed hyperlipidemia (principal); Z90.09 Acquired absence of other part of head and neck; E89.0 Postprocedural hypothyroidism; Z79.890 Hormone replacement therapy | CPT/HCPCS: 99214 ==

== ENCOUNTER → 2024-07-10 13:01 | Outpatient (BNVA) | payer MEDICARE, OTHER, SELFPAY | PROVIDERS: PCP Family Medicine; Visit Provider Nurse Practitioner | DX: M17.0 Bilateral primary osteoarthritis of knee; Z71.89 Other specified counseling | CPT/HCPCS: 20610; J1100; J2795; J3301 ==

== ENCOUNTER → 2024-09-13 08:41 | Outpatient (BNVA) | payer MEDICARE, OTHER, SELFPAY | PROVIDERS: PCP Family Medicine; Visit Provider Nurse Practitioner | DX: M17.0 Bilateral primary osteoarthritis of knee (principal); Z71.89 Other specified counseling | CPT/HCPCS: 20610; 99213; J1100; J2795; J3301; J9999 ==

== ENCOUNTER → 2024-09-19 08:58 | Outpatient (BNVA) | payer MEDICARE, OTHER, SELFPAY | PROVIDERS: PCP Family Medicine; Visit Provider Orthopaedic Surgery | DX: M48.062 Spinal stenosis, lumbar region with neurogenic claudication (principal); Z98.1 Arthrodesis status | CPT/HCPCS: 72100; 99213 ==

== ENCOUNTER → 2024-10-09 13:25 | Outpatient (BNVA) | payer MEDICARE, OTHER, SELFPAY | PROVIDERS: PCP Family Medicine; Visit Provider Nurse Practitioner | DX: M17.11 Unilateral primary osteoarthritis, right knee (principal) | CPT/HCPCS: 73560; 73565; 99214 ==

== ENCOUNTER → 2024-11-10 08:52 | Outpatient (BNVA) | payer MEDICARE, OTHER, SELFPAY | PROVIDERS: PCP Family Medicine; Visit Provider Nurse Practitioner | DX: M17.11 Unilateral primary osteoarthritis, right knee (principal); Z71.89 Other specified counseling | CPT/HCPCS: 20610; 99213; J1100; J2795; J3301; J9999 ==

== ENCOUNTER 2024-12-22 10:14 | Outpatient (CLI) | payer MEDICARE, OTHER, SELFPAY ==
[2024-12-22 11:16] LABS: Free T4 Free Thyroxine 0.96 ng/dL (0.82-1.77); Thyroid Stimulating Hormone 3.25 uIU/mL (0.27-4.20)
== END 2024-12-22 10:15 | disposition home or self-care (01) ==
LOC: LAB 10:25
PROVIDERS: PCP Family Medicine; Visit Provider Internal Medicine
DX: E78.2 Mixed hyperlipidemia (principal)
CPT/HCPCS: 36415; 84439; 84443

== ENCOUNTER → 2024-12-28 11:17 | Outpatient (BNVA) | payer MEDICARE, OTHER, SELFPAY | PROVIDERS: PCP Family Medicine; Visit Provider Internal Medicine | DX: E89.0 Postprocedural hypothyroidism (principal); E78.2 Mixed hyperlipidemia; G45.9 Transient cerebral ischemic attack, unspecified | CPT/HCPCS: 99214 ==

== ENCOUNTER → 2025-02-16 08:55 | Outpatient (BNVA) | payer MEDICARE, OTHER, SELFPAY | PROVIDERS: PCP Family Medicine; Visit Provider Nurse Practitioner | DX: M17.0 Bilateral primary osteoarthritis of knee (principal); Z71.89 Other specified counseling | CPT/HCPCS: 99214 ==

== ENCOUNTER → 2025-02-22 12:32 | Outpatient (BNVA) | payer MEDICARE, OTHER, SELFPAY | PROVIDERS: PCP Family Medicine; Visit Provider Internal Medicine Cardiovascular Disease | DX: I25.10 Atherosclerotic heart disease of native coronary artery without angina pectoris (principal); I10 Essential (primary) hypertension; E78.5 Hyperlipidemia, unspecified; J44.9 Chronic obstructive pulmonary disease, unspecified; R60.0 Localized edema; F17.210 Nicotine dependence, cigarettes, uncomplicated | CPT/HCPCS: 99214 ==

== ENCOUNTER 2025-02-28 09:26 | Outpatient (CLI) | payer MEDICARE, OTHER, SELFPAY ==
[2025-02-28 09:59] VITALS: BMI 26.7
--- NOTE | 2025-02-28 09:59 | ECG_ITS ---
[facility] 2025-02-28 Pat Name: Sonia Franco Department: Room: Gender: Female Urology Physician: : 1950 Requested By: Moshe Pinedo Order Number: [id number] Simeon MD: Ja Alexis M.D. Interpretive Statements Lung unchanged pre/post procedure; Intraprocedure shortess of breath; Symptoms resoled by discharge PROCEDURE: At the baseline, the EKG revealed normal sinus rhythm with a right bundle branch block pattern.. The baseline heart was 85 bpm with a blood pressue of 146/78 mm of Hg Lexiscan was infused over a period of 20 seconds. A total of 0.4 milligrams of Lexiscan was infused. The stress phase was continued for a total of 5 minutes. Heart rate at the end of the stress phase was 86 bpm with a blood pressure 155/85 mm of Hg. The EKG at the peak infusion revealed no significant changes. Sestamibi was injected 20 seconds after the Lexiscan infusion. Heart rate at the end of the recovery phase was 70 bpm with a blood pressure of 155/83 mm of Hg. CONCLUSION: 1. No significant EKG changes with the LexiScan infusion 2. No LexiScan induced chest pain or cardiac arrhythmia 3. Normal blood pressure and heart rate response 4. Sestamibi/sestamibi perfusion scan pending; see separate report. Electronically Signed On 03-03-2025 13:16:12 CDT by Ja Alexis M.D. [email or web address]
--- NOTE | 2025-02-28 09:59 | NMCV_ITS ---
NM callie perf SPECT r/s* [id number] Sonia Franco Age: 74 Gender: F : 1950 Exam Date: 02/28/2025 10:35 Ordering Phys: Moshe Pinedo MD ([email or web address]) Technologist: ADA Ureña Exam Location: [facility] Indications: cp STRESS TEST Please see separate stress test report in [facility] for full findings IMAGE PROTOCOL Rest/Stress 1 Lexiscan Day Radiopharmaceutical Dose (mCi) Administration Site Administered by Rest: Tc-99m 10.5 IV ADA Ureña Sestamibi Stress:Tc-99m 32.6 IV ADA Mccoy Sestamibi Rest: 28-Feb-2025 60 Discovery 630 Stress: 28-Feb-2025 30 Discovery 630 0.4mg Lexiscan. Supine position only as patient was unable to lay prone. SPECT RESULTS Technical Quality: Good Raw Data Analysis: Normal Image Corrections: No attenuation or motion correction applied Summed Stress Score: 0 Summed Rest Score: 0 Summed Difference Score: 0 PERFUSION FINDINGS Uniform myocardial tracer uptake with no significant Perfusion abnormalities FUNCTIONAL RESULTS (calculated via Gated SPECT) Stress Image LV EF (%): 75 Stress EDV (mL):93 TID: 1.13 Stress ESV (mL):23 FUNCTIONAL FINDINGS: Segmental wall motion analysis revealing no gross wall motion abnormalities IMPRESSIONS 1. Myocardial perfusion imaging revealing fairly uniform myocardial tracer uptake with no significant perfusion abnormalities 2. Normal LV ejection fraction of 75%. 3. LV wall motion analysis revealing no gross wall motion abnormalities. 4. Normal LV volume Low probability for coronary ischemia, based on the above findings Dr Ja Alexis MD FACC (Electronically Signed) Final Date: 28 February 2025 13:55 S
[2025-02-28 11:23] VITALS: BP 133/78; PULSE 78
[2025-02-28] MEDS: aminophylline 25 mg/mL SDV 20 mL IVP (11:23)
== END 2025-02-28 09:27 | disposition home or self-care (01) ==
PROVIDERS: PCP Family Medicine; Visit Provider Internal Medicine Cardiovascular Disease
DX: R06.02 Shortness of breath (principal); R07.9 Chest pain, unspecified; I45.10 Unspecified right bundle-branch block
CPT/HCPCS: 36415; 78452; 93017; 96374; 96375; A9500; J0280; J2785

== ENCOUNTER 2025-03-01 09:19 | Outpatient (CLI) | payer MEDICARE, OTHER, SELFPAY ==
--- NOTE | 2025-03-01 10:00 | USR_ITS ---
PROCEDURE INFORMATION: Exam: US Bilateral Noninvasive Physiologic Study of the Lower Extremity Arteries, Limited Exam date and time: 03/01/2025 9:52 AM Age: 74 years old Clinical indication: Pain; Leg, lower; Bilateral; Additional info: Coronary artery disease TECHNIQUE: Imaging protocol: Bilateral Limited bilateral noninvasive physiologic studies of lower extremity arteries. Waveforms were obtained and evaluated. Images were documented and archived. Exam is limited. COMPARISON: CR XR knees AP WB w RT lmt ORTH 10/09/2024 1:33 PM FINDINGS: Right Ankle-Brachial Index: 1.05 Left Ankle-Brachial Index: 1.07 US/CV ankle brachial index 22788 IMPRESSION: No evidence of stenosis or occlusion in the lower extremity.
== END 2025-03-01 09:20 | disposition home or self-care (01) ==
LOC: RAD 09:19
PROVIDERS: PCP Family Medicine; Visit Provider Internal Medicine Cardiovascular Disease
DX: I25.10 Atherosclerotic heart disease of native coronary artery without angina pectoris (principal); I73.9 Peripheral vascular disease, unspecified
CPT/HCPCS: 93922

== ENCOUNTER 2025-03-13 07:20 | Outpatient (CLI) | payer MEDICARE, OTHER, SELFPAY ==
--- NOTE | 2025-03-13 07:45 | CT_ITS ---
WS: [id number] CT RIGHT hip for PIERO procedure HISTORY: M17.11 - Unilateral primary osteoarthritis, right knee Date: 03/13/2025 8:02 AM TECHNIQUE: Protocol for PIERO total hip replacement has been obtained. This includes axial imaging from the hip joint through the knee joint. DLP: 860 FINDINGS: Pedicle screw fixation lower lumbar spine. Sacroiliac fixation. Osteopenia. Aortic calcification. Moderate to advanced arthritis RIGHT hip. Joint space narrowing with [id number]-rv-[id number] articulation in some areas. Vascular calcification. CT/CT hip RT [facility] [id number] IMPRESSION: CT imaging provided for [facility] robotic total hip replacement.
== END 2025-03-13 07:21 | disposition home or self-care (01) ==
LOC: RAD 07:20
PROVIDERS: PCP Family Medicine; Visit Provider Nurse Practitioner
DX: M17.11 Unilateral primary osteoarthritis, right knee (principal)
CPT/HCPCS: 73700

== ENCOUNTER 2025-03-20 06:02 | Outpatient (CLI) | payer MEDICARE, OTHER, SELFPAY ==
--- NOTE | 2025-03-20 06:15 | USCV_ITS ---
Sonia Franco Age: 74 Gender: F : 1950 Exam Date: 03/20/2025 06:20 Ordering Phys: Moshe Pinedo MD ([email or web address]) Technologist: [place] [facility] [place]: cp sob BP: 130 / 80 HR: 58 Rhythm: Sinus Technical Quality: MEASUREMENTS (Male / Female) Normal Values 2D ECHO LV Diastolic Diameter PLAX 4.6 cm 4.2 - 5.9 / 3.9 - 5.3 cm IVS Diastolic Thickness 1.2 cm 0.6 - 1.0 / 0.6 - 0.9 cm IVS Systolic Thickness 1.7 cm LVPW Diastolic Thickness 1.3 cm 0.6 - 1.0 / 0.6 - 0.9 cm LVPW Systolic Thickness 1.5 cm LVOT Diameter 2.0 cm LV Ejection Fraction 2D Teich 67.8 % LV Ejection Fraction MOD 4C 66.3 % LV Ejection Fraction MOD 2C 67.2 % LV Ejection Fraction 2C AL 67.8 % LA Diameter 4.1 cm RA Systolic Volume 4C AL 53.1 ml RA Systolic Volume 4C MOD 50.5 ml LA Sys Volume AL 81.3 cm cubed LA Sys Volume Index AL 42.5 cm cubed/m squared Aorta at Sinotubular Diameter 3.2 cm IVC Diameter 1.7 cm M-MODE LA Ao Ratio MM 1.4 AV Cusp Separation MM 2.4 cm DOPPLER AV Peak Velocity 143.0 cm/s LVOT Peak Velocity 122.0 cm/s AV Area Cont Eq vti 3.4 cm squared AV Area Cont Eq pk 2.8 cm squared MV Peak Velocity 110.0 cm/s MV Area PHT 4.0 cm squared Mitral E to A Ratio 1.3 TR Peak Velocity 205.0 cm/s TR Peak Gradient 16.8 mmHg TV Peak E Velocity 98.0 cm/s PV Peak Velocity 101.0 cm/s FINDINGS Left Ventricle Normal left ventricular size, systolic function and wall thickness, with no regional wall motion abnormalities. Left ventricular ejection fraction is estimated at 60 %. Grade II/IV diastolic dysfunction, moderately elevated filling pressures. Right Ventricle The right ventricle is normal in size and function. Right Atrium The right atrium is normal in size. Left Atrium Moderately increased left atrial size. Mitral Valve Structurally normal mitral valve. No mitral valve stenosis. Moderate mitral valve regurgitation. Trace mitral valve regurgitation. Aortic Valve Mild aortic valve calcification. Aortic valve sclerosis. No aortic valve stenosis. Trace aortic valve regurgitation. Tricuspid Valve Structurally normal tricuspid valve without significant stenosis or regurgitation. Pulmonary artery systolic pressure is normal. Pulmonic Valve Structurally normal pulmonic valve without significant stenosis. There is no pulmonic regurgitation. Pericardium Normal pericardium without effusion. Aorta Normal ascending aorta dimension. IVC The inferior vena cava appears normal. CONCLUSIONS Normal left ventricular size, systolic function and wall thickness, with no regional wall motion abnormalities. Left ventricular ejection fraction is estimated at 60 %. Grade II/IV diastolic dysfunction, moderately elevated filling pressures. Moderately increased left atrial size. No significant valve abnormalities. Right atrial pressure is around 5 mm of mercury. Moshe Pinedo MD (Electronically Signed) Final Date: 23 March 2025 15:25 S
== END 2025-03-20 06:03 | disposition home or self-care (01) ==
LOC: RAD 06:03
PROVIDERS: PCP Family Medicine; Visit Provider Internal Medicine Cardiovascular Disease
DX: R06.02 Shortness of breath (principal); R07.9 Chest pain, unspecified; I51.89 Other ill-defined heart diseases; I34.0 Nonrheumatic mitral (valve) insufficiency; I35.9 Nonrheumatic aortic valve disorder, unspecified
CPT/HCPCS: 93306

== ENCOUNTER 2025-03-22 16:15 | Outpatient (CLI) | payer MEDICARE, OTHER, SELFPAY ==
--- NOTE | 2025-03-22 17:00 | CT_ITS ---
WS: [id number] CT RIGHT KNEE, NONCONTRAST [facility] TECHNIQUE: Noncontrast CT of the RIGHT knee to include the RIGHT hip and ankle. CLINICAL INFORMATION: M17.11 - Unilateral primary osteoarthritis, right knee COMPARISON: None. DLP: 960.[address] scans at [facility] use at least one of these dose optimization techniques: automated exposure control; mA and/or kV adjustment per patient size (includes targeted exams where dose is matched to clinical indication); or iterative reconstruction. FINDINGS: Advanced tricompartmental arthritis RIGHT knee. Hypertrophic patella. Small suprapatellar effusion. Soft tissue edema about the joint line. Vascular calcification. Sacroiliac screw fixation partially visualized. CT/CT knee RT [facility] [id number] IMPRESSION: Images obtained for preoperative purposes.
== END 2025-03-22 16:16 | disposition home or self-care (01) ==
LOC: RAD 16:18
PROVIDERS: PCP Family Medicine; Visit Provider Specialist
DX: M17.11 Unilateral primary osteoarthritis, right knee (principal)
CPT/HCPCS: 73700

== ENCOUNTER → 2025-03-26 09:25 | Outpatient (BNVA) | payer MEDICARE, OTHER, SELFPAY | PROVIDERS: PCP Family Medicine; Visit Provider Nurse Practitioner | DX: M17.11 Unilateral primary osteoarthritis, right knee (principal) | CPT/HCPCS: 73560; 73565 ==

== ENCOUNTER 2025-03-26 10:31 | Outpatient (CLI) | payer MEDICARE, OTHER, SELFPAY ==
[2025-03-26 11:22] LABS: Hematocrit 40.6 % (36-47); Hemoglobin 12.90 g/dL (11.27-16.99); Mean Corpuscular HGB Conc 31.8 g/dL (30-55); Mean Corpuscular Hemoglobin 28.8 pg (27-33); Mean Corpuscular Volume 90.6 fl (85-98); Nucleated Red Blood Cells % 0 %; Platelet Count 334 10^3/cmm (157-399); Red Blood Count 4.48 10^6/uL (3.85-5.65); White Blood Count 7.83 10^3/uL (3.29-11.43)
[2025-03-26 11:43] LABS: Alanine Aminotransferase 11 U/L (0-33); Albumin Level 4.0 g/dL (3.5-5.2); Alkaline Phosphatase 117 U/L (35-105); Anion Gap 14.3 (5-19); Aspartate Amino Transferase 19 U/L (0-32); Blood Urea Nitrogen 10 mg/dL (8-23); Calcium 9.1 mg/dL (8.5-10.5); Carbon Dioxide 27 mmol/L (22-29); Chloride 104 mmol/L (98-107); Globulin 3.1 g/dL (1.3-4.6); Glucose 95 mg/dL (65-115); Osmolality Calculated 291 mOsm/kg (285-295); Potassium 4.3 mmol/L (3.5-5.1); Sodium 141 mmol/L (136-145); Total Protein 7.1 g/dL (6.6-8.7)
== END 2025-03-26 10:32 | disposition home or self-care (01) ==
LOC: LAB 10:33
PROVIDERS: PCP Family Medicine; Visit Provider Nurse Practitioner
DX: M25.561 Pain in right knee (principal)
CPT/HCPCS: 36415; 80053; 85025

== ENCOUNTER → 2025-04-02 12:13 | Outpatient (BNVA) | payer MEDICARE, OTHER, SELFPAY | PROVIDERS: PCP Family Medicine; Visit Provider Family Medicine | DX: M25.561 Pain in right knee (principal) | CPT/HCPCS: 81000 ==

== ENCOUNTER 2025-04-06 11:51 | Outpatient (CLI) | payer MEDICARE, OTHER, SELFPAY ==
[2025-04-06 12:32] LABS: Anion Gap 15.2 (5-19); Blood Urea Nitrogen 11 mg/dL (8-23); Calcium 8.8 mg/dL (8.5-10.5); Carbon Dioxide 30 mmol/L (22-29); Chloride 100 mmol/L (98-107); Glucose 80 mg/dL (65-115); Osmolality Calculated 290 mOsm/kg (285-295); Potassium 4.2 mmol/L (3.5-5.1); Sodium 141 mmol/L (136-145)
== END 2025-04-06 11:52 | disposition home or self-care (01) ==
LOC: LAB 11:53
PROVIDERS: PCP Family Medicine; Visit Provider Internal Medicine Cardiovascular Disease
DX: I10 Essential (primary) hypertension (principal)
CPT/HCPCS: 36415; 80048

== ENCOUNTER 2025-04-12 14:36 | Observation (INO) | payer MEDICARE, OTHER, SELFPAY ==
[2025-04-12] VITALS (24 sets, daily range): BP systolic 86–126; BP diastolic 48–71; PULSE 42–66; RESP 13–21; TEMP 36.3–36.6; O2SAT 92–97; BMI 26.6
[2025-04-12] MEDS: acetaminophen 1,000 MG/100 ML PIGGYBACK 400 MG IV ×3 (06:29→22:36)
--- NOTE | 2025-04-12 06:55 | ANES.PREANE2 ---
Pre-Anesthetic Assessment Height/Weight: Height 1.7 m Weight 77.111 kg O2 Del Method Room Air 04/12/25 06:25 Operation Date: 04/12/25 07:00 Proposed Procedures p RIGHT Jonny Robot Total Knee Arthroplasty(Right) - Navya Bhatti MD Familial anesthetic complications: None Was Beta John taken within 24 hours: N/A Was Clonidine taken within 24 hours: N/A Last intake: Intake Last Liquid Date 04/11/25 Last Liquid Time 22:00 Last Solid Date 04/11/25 Last Solid Time 22:00 Social Tobacco and No alcohol Exam alert, oriented x 3, clear to auscultation bilaterally and regular rate & rhythm Airway Mallampati: Class III Dentition: false Pulmonary Chronic Obstructive Pulmonary Disease CV/HEM Coronary Artery Disease and Hypertension GI Gastroesophageal Reflux Disease Metabolic Hyperlipidemia Neuropsych TIA Anesthetic Plan ASA status: 3 Anesthesia: Regional (specify below) Other: Spinal (patient chose Exparel injection over Nerve block) Risk of > 500 ml blood loss (7ml/kg in children): No Medications/Allergies Home Medications ?Medication ?Instructions ?Recorded ?Confirmed ?Last Taken ?Type ropinirole 0.5 mg tablet 0.5 mg PO TID 11/10/19 04/12/25 04/12/25 04:30 History pantoprazole 40 mg tablet,delayed 40 mg PO DAILY 04/04/21 04/11/25 04/11/25 History release albuterol sulfate 90 mcg/actuation 2 puff inhalation Q6H PRN 11/19/21 04/11/25 09/20/23 History aerosol inhaler (ProAir HFA) Shortness Of Breath carvedilol 6.25 mg tablet 6.25 mg PO BID #180 tabs 02/05/22 04/12/25 04/12/25 04:30 Rx atorvastatin 10 mg tablet 10 mg PO QPM 04/27/22 04/11/25 04/10/25 History furosemide 20 mg tablet 20 mg PO DAILY PRN edema #90 tabs 07/29/22 04/11/25 04/08/25 Rx aspirin 81 mg tablet,delayed 81 mg PO DAILY 07/23/23 04/11/25 04/04/25 History release uxilctsuvo-lpzcwctmoltju-lbegmnph 1 tab PO Q6H PRN Pain 07/23/23 04/11/25 09/21/23 History 50 mg-325 mg-40 mg tablet baclofen 10 mg tablet 10 mg PO QPM 08/17/23 04/11/25 04/10/25 History tramadol 50 mg tablet 50 mg PO Q6H PRN Pain, Moderate 08/17/23 04/11/25 04/11/25 History Hinged Knee Brace, LEFT #1 ea 02/29/24 04/02/25 Unknown Rx TLSO Brace #1 ea 02/29/24 04/02/25 Unknown Rx losartan 50 mg tablet 100 mg (2 x 50 mg) PO DAILY #180 03/13/24 04/11/25 04/11/25 Rx tabs nitroglycerin 0.4 mg sublingual 0.4 mg sublingual Q5M PRN chest 04/04/24 04/11/25 Unknown Rx tablet pain #30 tabs dpzuraqm-ttr-lqopa 150 mcg-vit K1 1 tab PO DAILY 05/18/24 04/11/25 Unknown History 30 mcg-lycop 300 mcg-lutein tablet (Centrum Minis Men 50 Plus) diclofenac sodium 50 mg 50 mg PO TID PRN pain #90 tabs 09/28/24 04/11/25 Unknown Rx tablet,delayed release montelukast 10 mg tablet 10 mg PO DAILY 12/28/24 04/11/25 Unknown History amlodipine 5 mg tablet 5 mg PO BID #180 tabs 02/22/25 04/12/25 04/12/25 04:30 Rx isosorbide dinitrate 30 mg tablet 30 mg PO DAILY #90 tabs 02/22/25 04/11/25 04/11/25 Rx chlorthalidone 12.5 mg tablet 12.5 mg PO DAILY #90 tabs 04/06/25 04/11/25 04/11/25 Rx levothyroxine 25 mcg tablet 25 mcg PO DAILY 04/11/25 04/12/25 04/12/25 04:30 History Allergies Allergy/AdvReac Type Severity Reaction Status Date / Time gabapentin Allergy vomitting Verified 04/12/25 06:12 Sulfa (Sulfonamide Allergy ALGY-Anaphy Verified 04/12/25 06:12 Antibiotics) laxis PFSH Anesthesia Medical History (Updated 04/12/25 @ 07:01 by Navya Bhatti MD) TIA (transient ischemic attack) Primary osteoarthritis of right knee Essential hypertension Primary localized osteoarthritis of left knee Left anterior knee pain Smoker Hypertension Chronic obstructive pulmonary disease Coronary artery disease Hyperlipidemia Surgical History History of carpal tunnel surgery BILATERAL Hx of hemorrhoidectomy H/O thyroidectomy Hx of hysterectomy Previous back surgery S/P left knee arthroscopy S/P cholecystectomy 2015 Family History Father Hepatic sclerosis Mother Cancer Diabetes Kidney failure Other CAD (coronary artery disease) Social History Smoking and tobacco/nicotine status: former use of tobacco/nicotine Quit status (tobacco/nicotine): has tried quititng Number of times tried to quit tobacco: 6 Second hand smoke exposure: Yes Alcohol intake: never Substance/Drug Use: never Caregiver/support person: No Lives independently: Yes Household members: spouse Housing: House Marital status: Current occupational status: retired Pets and animals: Yes Do you think of yourself as: Straight/Heterosexual Current gender identity: Female Data Anesthesia Cardiac Studies: Echocardiogram 03/20/25 Sestamibi Stress Test (Cardiology) 02/28/25
--- NOTE | 2025-04-12 07:00 | W.PM.OPSUD ---
Surgery/Procedure H&P Update DATE OF PROCEDURE: April 12, 2025 DATE H&P PERFORMED: 03/26/25 H&P UPDATE INFORMATION: I have reviewed H&P completed within last 30 days, I have examined patient prior to procedure, No changes to prior documentation, H&P is in [facility] EMR on date indicated and Risks and benefits of the procedure reviewed PREOP DIAGNOSIS: Right knee osteoarthritis PLANNED PROCEDURE: Operation Date: 04/12/25 07:00 Proposed Procedures p RIGHT Jonny Robot Total Knee Arthroplasty(Right) - Navya Bhatti MD Related Problem List Diagnoses 1. Primary osteoarthritis of right knee: Qualifiers: Osteoarthritis type: primary
[2025-04-12] MEDS: ceFAZolin 2,000 mg SDV 2000 MG IVP ×2 (07:08→16:12)
[2025-04-12] MEDS: tranexamic acid 1,000 mg/10mL SDV 1000 MG IV (07:50)
[2025-04-12] MEDS: BUPivacaine liposome 13.3 mg/mL SDV 20 mL 266 MG XX (08:10)
[2025-04-12] MEDS: BUPivacaine 0.5% INJ 30 mL 20 ML XX (08:10)
[2025-04-12] MEDS: ceFAZolin 1,000 mg SDV 2000 MG XX (08:13)
--- NOTE | 2025-04-12 09:58 | P.OP_ITS ---
Operative Report Date of procedure: April 12, 2025 Pre-op diagnosis: Primary osteoarthritis right knee Post-op diagnosis: Primary osteoarthritis right knee Post-op findings: Significant degenerative osteoarthritic change within open of cartilage. Slight hyperextension and slight varus deformity Procedure done: Right total knee arthroplasty with Jonny guidance Implants: The [place] total knee system with a size 4 triathlon beaded cruciate retaining femur right, a triathlon titanium tibial component size 3 beaded, a triathlon X3 tibial bearing CS insert size 3 x 9 mm and a beaded triathlon titanium asymmetric patella size 32 x 10 mm Specimens removed/disposition: Bone, disposed of Pathology: None Surgeon: Navya Bhatti MD Dynamics Ax Consultant: Virginia Tubbs, nurse practitioner, who services were required for positioning, retraction, completion of the surgical procedure, and closure Anesthesia: Spinal (With MAC, ASA 3) Estimated blood loss (mL): 40 Tourniquet time (min): 0 (Not utilized) IV fluids (mL): 1,000 Urine output (mL): 50 Complications: None Findings: Severe degenerative osteoarthritis of the knee with slight hyperextension and slight varus deformity Condition: stable Disposition: PACU (Admit to floor under observation status for postoperative rehabilitation and pain management) Brief History: This 75-year-old woman presented with complaints of severe right knee pain. The patient had significant advanced degenerative changes of the knee bilaterally, but the symptoms on the right was worse. Patient has had treatments including corticosteroid injections, viscosupplementation injections, anti-inflammatory medications, bracing, activity modification, and physical therapy. She is failing all of these at this point and wishes to proceed with right total knee arthroplasty. Risks and complications are discussed in the office. Consents were signed and questions were answered. Patient was given further opportunity the morning of surgery to ask further questions and have them answered. Risks were once again discussed. Procedure: The patient was brought to the operating theater, and after undergoing spinal anesthesia, ASA 3, with MAC, the right lower extremity was prepped with Dura- Prep and draped in usual fashion following placement of a tourniquet high on the leg. The leg was then draped free.? Tourniquet was not elevated throughout the surgical procedure. Prior to commencement of the procedure, a surgical pause was performed, and at the time of the surgical pause, we confirmed the site and side of surgery. Additionally, we confirmed the appropriate and timely administration of preoperative antibiotics, Ancef 2 g.? The availability of equipment was confirmed, and the patient's identity was verbalized as well. Following the surgical pause, an incision was made centering over the patella continuing proximally and distally as necessary to allow access to the knee joint. Prior to incision, assessment was made of the patient's leg, and there was noted to be slight hyperextension with minimal varus deformity. Dissection continued through skin and soft tissues using a scalpel. Hemostasis was obtained using electrocautery. The skin incision was followed by a median parapatellar arthrotomy. The leg was extended and the patella was able to be displaced laterally.? Appropriate arrays and markers were placed in appropriate position for use of the Jonny.? Preoperative planning had been accomplished and was discussed in detail with the Jonny customer account representative.? Intraoperative mapping of the femur and tibia was accomplished after the arrays were placed.? Internal markers were also placed.? Once we had accomplished the Jonny mapping, we began the appropriate resections for placement of the prosthesis.? The plan was for a cruciate retaining uncemented right total knee arthroplasty. Retraction was established using manual retraction by surgical appliance fitter and also the Jonny leg positioner and retractors.? The knee was evaluated.? There was minimal hyperextension preoperatively and only slight varus deformity. Osteophytes were removed. Further assessment of the balance of the knee was accomplished following osteophyte removal. Appropriate bone resection was accomplished using the Jonny.? The femur was sized to a size 4.? Following femoral cuts, attention was directed to the tibia.? Osteophytes were removed prior to this portion of the procedure.? We had performed a medial release at the beginning of the procedure to allow for placement of the array.? Proximal tibia was evaluated, and it was felt that appropriate size for the tibia was a size 3.? The size 3 tray was noted to fit nicely with good coverage.? Rim fit was accomplished with the size 3. A trial reduction was accomplished after osteophytes as well as the medial and lateral menisci had been removed.? We had removed the anterior cruciate ligament at the beginning of the case and preserved the posterior cruciate ligament.? Trial reduction was accomplished with a size 4 femoral cruciate retaining component, a size 3 tibial tray and a size 5 CS tibial bearing insert which was 10 mm in thickness. This was felt to give the patient a slight flexion contracture, therefore, we performed a second trial reduction with the tibial tray that was 9 mm thick. With this configuration of a size 4 femur, a size 3 tibia with a 9 mm insert, the knee was noted to be well-balanced. Alignment was felt to be appropriate as well.? Trial components were removed after the femur had been drilled.? Prior to removal of the tibial tray which had been pinned in position with appropriate rotation as determined by the Jonny plan, we broached the tibia.? Subsequently, the 4 drill holes were made for the prosthetic component.? All trial components were removed, and the wound was irrigated.? Plans were made for insertion of the prosthetic components.? Prior to this, the patella was manually prepared.? After resection of the articular surface with the jigging system, it was measured and measured a 32 mm patella.? We resected approximately 10 mm of patella.? Patellar height was restored with the patellar component. Once again, the wound was irrigated. The Tritanium tibia was impacted into position.? The beaded femur was then impacted into position in a cementless fashion. The CS tibial insert was placed prior to placement of the femoral component. The patella was pressed into position with a patellar clamp.? The knee was then copiously irrigated with betadine and saline and suctioned dry. Attention was then directed to closure. Closure was accomplished with 0 Vicryl in the fascial tissues.? The suture line of 0 Vicryl was supplemented with strata fix #1, with a running suture from proximal to distal and a second running stitch from distal to proximal.? This was followed by Surgiflo and vancomycin powder.? Following this, a 2-0 Monocryl was used in the subcutaneous tissues, and the skin was closed with 3-0 Strata fix.? Care was taken to assure an excellent subcutaneous as well as skin closure.? A sterile dressing was then placed consisting of Dermabond Prineo, OpSite, ABD, sterile soft roll, and an Keyur wrap including over the foot. The patient was returned the Recovery Room in a satisfactory condition. X-rays were obtained and reviewed there.? The patient will be discharged to the floor for postoperative rehabilitation and pain management. Related Problem List Diagnoses 1. Primary osteoarthritis of right knee:
--- NOTE | 2025-04-12 10:06 | XR_ITS ---
WS: [id number] XR knee RT 1-2V 54502 REASON FOR EXAM: Status post total knee arthroplasty FINDINGS: Total right knee arthroplasty. Components of the arthroplasty are intact and in proper position and alignment. No focal bone abnormality. XR/XR knee RT 1-2V 35536 IMPRESSION: Total right knee arthroplasty without abnormality.
--- NOTE | 2025-04-12 10:50 | ANE.PACU2 ---
Inpatient post-anesthesia follow up: Airway intact: Yes Vital signs: Temperature 97.8 F Pulse Rate 47 Respiratory Rate 16 Blood Pressure 101/53 Pulse Oximetry 92 Oxygen Delivery Me thod Room Air Oxygen Flow Rate 2 Fraction of Inspir ed Oxygen Hydration adequate: Yes Nausea and vomiting: No Pain level: 1 Mental status: Baseline
[2025-04-12] MEDS: chlorhexidine gluconate 0.12% Btl 473 mL 30 ML MUCOUS MEM ×2 (16:11→16:13)
[2025-04-12] MEDS: sennosides-docusate Tablet 2 TAB PO (16:12)
[2025-04-12] MEDS: mupirocin oint 22 gm 1 APPLIC NASAL (16:13)
[2025-04-12] MEDS: oxyCODONE 5 mg IR Tab/Cap PO ×2 (16:19→20:48)
[2025-04-12] MEDS: tranexamic acid 1,000 MG/100 ML PREMIX 600 MG IV (17:53)
[2025-04-12] MEDS: ATORVASTATIN 10 MG TABLET PO (17:53)
--- NOTE | 2025-04-12 23:59 | PC.NURSE ---
pt continue to c/o pain, despite all ordered pain meds already administered, rating pain at 10, call placed to Dr. Cruz, (ortho conveyor maintenance mechanic), order received for morphine 4 mg IVP now, may repeat in 3 hours if needed
[2025-04-13] VITALS (14 sets, daily range): BP systolic 91–123; BP diastolic 49–65; PULSE 51–65; RESP 16–20; TEMP 36.4–36.7; O2SAT 90–98
[2025-04-13] MEDS: chlorhexidine gluconate 0.12% Btl 473 mL 30 ML MUCOUS MEM ×3 (00:03→11:37)
[2025-04-13] MEDS: ceFAZolin 2,000 mg SDV 2000 MG IVP ×2 (00:03→06:38)
[2025-04-13] MEDS: morphine 4 mg/mL SDV 1 mL IVP ×2 (00:09→03:17)
[2025-04-13] MEDS: oxyCODONE 5 mg IR Tab/Cap PO ×4 (00:54→13:26)
[2025-04-13 05:12] LABS: Hematocrit 36.7 % (36-47); Hemoglobin 11.80 g/dL (11.27-16.99); Mean Corpuscular HGB Conc 32.2 g/dL (30-55); Mean Corpuscular Hemoglobin 28.4 pg (27-33); Mean Corpuscular Volume 88.2 fl (85-98); Nucleated Red Blood Cells % 0 %; Platelet Count 244 10^3/cmm (157-399); Red Blood Count 4.16 10^6/uL (3.85-5.65); White Blood Count 10.23 10^3/uL (3.29-11.43)
[2025-04-13 05:25] LABS: Blood Urea Nitrogen 14 mg/dL (8-23); Calcium 8.8 mg/dL (8.5-10.5); Carbon Dioxide 24 mmol/L (22-29); Chloride 97 mmol/L (98-107); Creatinine Clr Calc Pharmacy 65.0381; Glucose 131 mg/dL (65-115); Osmolality Calculated 282 mOsm/kg (285-295); Sodium 135 mmol/L (136-145)
[2025-04-13] MEDS: multivitamin therapeutic Tablet 1 TAB PO (05:32)
[2025-04-13] MEDS: LOSARTAN 100 MG TABLET PO (05:32)
[2025-04-13] MEDS: sennosides-docusate Tablet 2 TAB PO (05:32)
[2025-04-13] MEDS: mupirocin oint 22 gm 1 APPLIC NASAL (05:33)
[2025-04-13 05:43] LABS: Anion Gap 17.3 (5-19); Potassium 3.3 mmol/L (3.5-5.1)
[2025-04-13] MEDS: acetaminophen 1,000 MG/100 ML PIGGYBACK 400 MG IV (06:38)
--- NOTE | 2025-04-13 15:04 | PM.DCS ---
Discharge Providers Date of Admission: 04/12/25 14:36 Date of Discharge: April 13, 2025 Attending Provider at Admission: Navya Bhatti MD Attending Provider at Discharge: Navya Bhatti MD Primary Care Provider: Inderjit Martinezno Diagnoses at Discharge Discharge Diagnosis 1. Primary osteoarthritis of right knee: 2. Status post total right knee replacement not using cement: Reason for Visit Reason for Visit: M17.11 Brief History: This 75-year-old woman presented with complaints of severe right knee pain. The patient had significant advanced degenerative changes of the knee bilaterally, but the symptoms on the right was worse. Patient has had treatments including corticosteroid injections, viscosupplementation injections, anti-inflammatory medications, bracing, activity modification, and physical therapy. She is failing all of these at this point and wishes to proceed with right total knee arthroplasty. Risks and complications are discussed in the office. Consents were signed and questions were answered. Patient was given further opportunity the morning of surgery to ask further questions and have them answered. Risks were once again discussed. Hospital Course Hospital Course This 75-year-old woman was admitted under observation status for same-day surgery. She underwent right total knee arthroplasty uneventfully. Postoperatively, she was admitted to the floor for pain management and physical therapy. On the day following surgery, she was doing well and sitting up in a chair. Overnight, she had pain that was treated with IV morphine to supplement her oxycodone. She did have lower blood pressure likely secondary to this. This resolved the day following surgery. She was felt safe for discharge to home. Physical therapy also felt she was safe. There was no evidence of DVT. The patient was discharged to home to follow-up in the office as scheduled. Physical Exam Const: COMMON NORMALS: no acute distress, average body habitus, patient oriented x3 and alert GENERAL APPEARANCE: cooperative and comfortable ORIENTATION/CONSCIOUSNESS: Yes awake HENMT: COMMON NORMALS: normocephalic and atraumatic HEAD & SCALP: normocephalic and atraumatic Eye: GENERAL EYE: appearance normal, both eyes and all related structures Chest: COMMONS NORMALS: normal inspection of the chest Resp: COMMON NORMALS: normal respiratory effort EFFORT & INSPECTION: Yes able to speak in complete sentences and Yes symmetric chest movement Extremity: RIGHT LOWER EXTREMITY: Yes knee joint (Large outer dressing was removed uneventfully) Right knee: Yes inspection (Minimal to no swelling), Yes palpation (No significant tenderness), Yes ROM (Not evaluated) and Yes neurovascular exam (Intact distally with no evidence of DVT) Neuro: COMMON NORMALS: patient oriented x3 SENSORIUM/ORIENTATION: Yes alert Psych: COMMON NORMALS: mental status grossly normal APPEARANCE: Yes grossly normal ATTITUDE: Yes calm and Yes engaged ATTENTION/CONCENTRATION: Yes attention grossly intact Skin: COMMON NORMALS: no rashes or lesions noted GENERAL SKIN EXAM: no rashes or lesions noted Urinary Catheter Management: August: Cath Placed During This Visit: yes Reason for Continuing Indwelling Catheter: Perioperative Use in Selected Surgeries Urinary Catheter Date of Insertion: 04/12/25 Urinary Catheter Time of Insertion: 07:40 Discharge Data Studies Completed and Pending Completed Studies During Hospitalization Category Date Time Status XR knee RT 1-2V 68136 Routine Exams 04/12/25 10:06 Completed Pending at discharge Category Date Time Status XR knee LT 1-2V 50420 Routine Exams 04/12/25 09:34 Taken Radiology Impressions Knee X-Ray 04/12/25 10:06 IMPRESSION: Total right knee arthroplasty without abnormality. Laboratory Results WBC 10.23 10^3/uL (3.29-11.43) 04/13/25 04:35 RBC 4.16 10^6/uL (3.85-5.65) 04/13/25 04:35 Hgb 11.80 g/dL (11.27-16.99) 04/13/25 04:35 Hct 36.7 % (36-47) 04/13/25 04:35 MCV 88.2 fl (85-98) 04/13/25 04:35 MCH 28.4 pg (27-33) 04/13/25 04:35 MCHC 32.2 g/dL (30-55) 04/13/25 04:35 RDW 14.2 % (12.1-15.1) 04/13/25 04:35 Plt Count 244 10^3/cmm (157-399) 04/13/25 04:35 MPV 10.3 fL (7.4-10.4) 04/13/25 04:35 Neut % (Auto) 68.6 % 04/13/25 04:35 Lymph % (Auto) 21.0 % 04/13/25 04:35 Alexander % (Auto) 9.8 % 04/13/25 04:35 Eos % (Auto) 0.1 % 04/13/25 04:35 Baso % (Auto) 0.2 % 04/13/25 04:35 Neut # (Auto) 7.02 10^3/uL (1.8-7.7) 04/13/25 04:35 Lymph # (Auto) 2.2 10^3/uL (0.8-4.8) 04/13/25 04:35 Alexander # (Auto) 1.0 10^3/uL (0.2-0.9) H 04/13/25 04:35 Eos # (Auto) 0.0 10^3/uL (0.0-0.8) 04/13/25 04:35 Baso # (Auto) 0.0 10^3/uL (0.0-0.1) 04/13/25 04:35 Nucleated RBC % (auto) 0 % 04/13/25 04:35 Nucleated RBCs # 0.0 /100WBC 04/13/25 04:35 Sodium 135 mmol/L (136-145) L 04/13/25 04:35 Potassium 3.3 mmol/L (3.5-5.1) L 04/13/25 04:35 Chloride 97 mmol/L (98-107) L 04/13/25 04:35 Carbon Dioxide 24 mmol/L (22-29) 04/13/25 04:35 Anion Gap 17.3 (5-19) 04/13/25 04:35 BUN 14 mg/dL (8-23) 04/13/25 04:35 Creatinine 0.6 mg/dL (0.5-0.9) 04/13/25 04:35 GFR Calculation Not Reportable 04/13/25 04:35 Glucose 131 mg/dL (65-115) H 04/13/25 04:35 Calculated Osmolality 282 mOsm/kg (285-295) L 04/13/25 04:35 Calcium 8.8 mg/dL (8.5-10.5) 04/13/25 04:35 Vitals Last Vital Signs Temp 97.6 F 04/13/25 11:18 Pulse 51 L 04/13/25 11:18 Resp 18 04/13/25 13:26 BP 112/49 04/13/25 13:07 Pulse Ox 90 04/13/25 11:18 O2 Del Method Room Air 04/13/25 11:18 O2 Flow Rate 2 04/12/25 10:40 Discharge Plan Discharge Patient Disposition: Home Health Service Condition: Stable Prescriptions: New celecoxib 200 mg Capsule 200 mg PO 1XD 30 Days Qty: 30 0RF aspirin 325 mg Tablet,Delayed Release (Dr/Ec) 325 mg PO DAILY 30 Days Qty: 30 0RF oxycodone 5 mg Tablet 5 mg PO Q4H PRN (Reason: Moderate To Severe Pain) 7 Days Qty: 40 0RF Continued ropinirole 0.5 mg tablet 0.5 mg PO TID pantoprazole 40 mg tablet,delayed release (DR/EC) 40 mg PO DAILY baclofen 10 mg tablet 10 mg PO QPM tramadol 50 mg tablet 50 mg PO Q6H PRN (Reason: Pain, Moderate) (DME) Hinged Knee Brace, LEFT See Rx Instructions .Route .MEDSUPPLY Qty: 1 0RF Rx Instructions: As directed (DME) TLSO Brace See Rx Instructions .Route .MEDSUPPLY Qty: 1 0RF Rx Instructions: As directed montelukast 10 mg tablet 10 mg PO DAILY carvedilol 6.25 mg tablet 6.25 mg PO BID Qty: 180 3RF Rx Instructions: must administer with a meal/food furosemide 20 mg tablet 20 mg PO DAILY PRN (Reason: edema) Qty: 90 1RF losartan 50 mg tablet 100 mg PO DAILY Qty: 180 3RF nitroglycerin 0.4 mg tablet, sublingual 0.4 mg sublingual Q5M PRN (Reason: chest pain) Qty: 30 6RF Rx Instructions: do not exceed 3 doses per episode amlodipine 5 mg tablet 5 mg PO BID Qty: 180 1RF isosorbide dinitrate 30 mg tablet 30 mg PO DAILY Qty: 90 3RF Rx Instructions: allow nitrate-free interval of 12-14 hrs per 24-hr period atorvastatin 10 mg tablet 10 mg PO QPM adnqyflogv-fsgjewbkhhaqw-tsrn 50-325-40 mg tablet 1 tab PO Q6H PRN (Reason: Pain) levothyroxine 25 mcg tablet 25 mcg PO DAILY Rx Instructions: TAKE 1 TABLET DAILY chlorthalidone 25 mg tablet 12.5 mg PO DAILY benzonatate 100 mg capsule 100 mg PO QID PRN (Reason: Cough) albuterol sulfate 90 mcg/actuation Hfa Aerosol Inhaler 2 puff INHALATION QID PRN (Reason: Shortness Of Breath Or Wheezing) pregabalin 50 mg capsule 50 mg PO TID Held aspirin 81 mg Tablet,Delayed Release (Dr/Ec) 81 mg PO DAILY Hold Instructions: Resume after 1 month of 325 mg dosing Discharge Order = DC NOW: Discharge Order (Routine); Ordered 04/13/25 Ordered By: Navya Bhatti Referrals: [facility] [Outside] Navya Bhatti MD [Physician, Orthopedics] - 04/23/25 11:00 am Discharge Diet: Advance as tolerated and Usual diet Discharge Activity: Increase activity as tolerated, Limit activity as instructed, Use walker/crutches as instructed and As per PT/OT instructions Patient Instructions: Oxycodone, Rapid Release (By mouth), Celecoxib (By mouth), Acute Wound Care (DC), Total Knee Replacement (DC), Joint Replacement Stoplight, Opioid Safety, Post Anesthesia Care, Patient Portal & Hilario Instructions Activity Restrictions/Additional Instructions: You may weight-bear as tolerated. Physical therapy will work with you on gait training, strengthening, and ambulation. He will use a walker or crutches as tolerated. You may shower but do not soak your knee in water. Ice to the right knee. If your dressing lifts up, you may remove it. Otherwise, please leave it in place until you are seen in the office. Discharge Attestations Time Spent in Discharge Care*: greater than 30 min Specific Discharge Activities: educating patient, documenting/other paperwork and evaluating patient/reviewing data Time Spent in Smoking Cessation: 3 to 10 minutes Quality Metrics Clinical Quality Measures [ No reported AMI, CVA or VTE this stay] Coding Level of Care Code Acute Code for Chg Fwd Diagnoses Primary osteoarthritis of right knee M17.11 Osteoarthritis type: primary Status post total right knee replacement not using cement Z96.651
--- NOTE | 2025-04-13 15:19 | PC.NURSE ---
Iv removed, cath intact. Pt tolerated well.
--- NOTE | 2025-04-13 15:19 | PC.NURSE ---
Discharge instructions provided to pt. NO questions or concerns at this time. Pt awaiting meds to beds then will drive her home.
--- NOTE | 2025-04-13 16:12 | PC.NURSE ---
Meds delivered to bedside. Pt to private vehicle via wheelchair with all belongins.
== END 2025-04-13 16:12 | disposition home health service (06) ==
LOC: MEDSURG 14:36
PROVIDERS: Admitting Provider Specialist; PCP Family Medicine; Visit Provider Specialist
PROC: 8E0Y0CZ Robotic Assisted Procedure of Lower Extremity, Open Approach (ICD-10-PCS; CPT 27447; principal; 2025-04-12 07:00)
DX: M17.11 Unilateral primary osteoarthritis, right knee (principal); K21.9 Gastro-esophageal reflux disease without esophagitis; Z79.82 Long term (current) use of aspirin; J44.9 Chronic obstructive pulmonary disease, unspecified; I25.10 Atherosclerotic heart disease of native coronary artery without angina pectoris; I10 Essential (primary) hypertension; E78.5 Hyperlipidemia, unspecified; Z86.73 Personal history of transient ischemic attack (TIA), and cerebral infarction without residual deficits; Z87.891 Personal history of nicotine dependence
CPT/HCPCS: 27447; 20985; 36415; 51702; 73560; 80048; 85025; 97110; 97116; 97161; 97165; A4216; A9281; C1776; G0378; J0131; J0666; J0690; J1100; J2270; J2371; J2704; J2795; J3010; J3373; J3490; J7040; J9999

== ENCOUNTER → 2025-04-23 13:40 | Outpatient (BNVA) | payer MEDICARE, OTHER, SELFPAY | PROVIDERS: PCP Family Medicine; Visit Provider Nurse Practitioner | DX: Z98.890 Other specified postprocedural states (principal); Z96.651 Presence of right artificial knee joint | CPT/HCPCS: 99024 ==

== ENCOUNTER 2025-05-09 10:29 | Outpatient (CLI) | payer MEDICARE, OTHER, SELFPAY ==
--- NOTE | 2025-05-09 10:40 | USCV_ITS ---
Sonia Franco Age: 75 Gender: F : 1950 Exam Date: 05/09/2025 10:44 Ordering Phys: Inderjit Etienne Technologist: MARY [place] [facility] [place] RIGHT LEG SWELLING-POST KNEE REPLACEMENT 03/2025 HISTORY: Lower extremity swelling-RIGHT PROCEDURES: Venous duplex imaging was performed in only the right lower extremity. The following venous structures were evaluated: common femoral vein, profunda vein, proximal portion of the greater saphenous vein, superficial femoral vein, and the popliteal vein. In addition, the posterior tibial and peroneal trunk were evaluated. FINDINGS: Normal 2-D Doppler and augmentation and compressibility throughout the lower extremity venous structures. Additional imaging through the proximal calf veins also reveals no thrombus. Limited evaluation of the greater saphenous vein is patent with no thrombus. CONCLUSIONS No DVT right lower extremity. Dr. Soraya Pike DO (Electronically Signed) Final Date: 09 May 2025 13:17 S
== END 2025-05-09 10:30 | disposition home or self-care (01) ==
LOC: RAD 10:32
PROVIDERS: PCP Family Medicine; Visit Provider Family Medicine
DX: R22.41 Localized swelling, mass and lump, right lower limb (principal)
CPT/HCPCS: 93971

== ENCOUNTER → 2025-05-21 09:50 | Outpatient (BNVA) | payer MEDICARE, OTHER, SELFPAY | PROVIDERS: PCP Family Medicine; Visit Provider Nurse Practitioner | DX: Z98.890 Other specified postprocedural states (principal); Z96.651 Presence of right artificial knee joint | CPT/HCPCS: 73560; 73565 ==